=== PATIENT | female | born 1975 | race Caucasian/White ===

== ENCOUNTER → 2016-11-14 | Outpatient (REF) | payer OTHER ==
[~2016-11-14] MED LIST: /MOXI40TA; /PIME1CR30 TOP; /PRIM50TA PO; /QUET10TA PO; /RANI15TA PO; ABIL5TAB OR; AFRI0.65; ALLE25CA OR; AMBI10TA; AMBI5TAB OR; AMBI5TAB PO; ATARAX OR; CALC05CR TOP; CELE100C OR; CLOB0.0513 TOP; CLOBEX TOP; DEPA500T2 OR; DEPA500T2 PO; EFFEXOR XR PO; FLUO10TA2 OR; GENECHW PO; KLON0.5T OR; LAMI25TA OR; LAMI25TA PO; LEVO25TA5 PO; LITH300C PO; LITH300T2 PO; LITHIUM PO; MAXA10TA14 PO; MAXA5TAB OR; MAXA5TAB10 PO; MULTCAP PO; NAPR500T OR; NASONEX; PRIL20CA PO; PRIL20TA2 PO; PROZ10CA7 PO; PROZ20CA OR; PROZ20CA11 PO; PROZ40CA OR; QUET20XRTB OR; QUET30XR OR; QUET30XR PO; REME30TA; SERO1TAB PO; SERO200T PO; SERO200T2 PO; SEROQUEL PO; SEROQUEL XR PO; TACLOIN4 TOP; TACLONEX TOP; TOPI25TA2; TRAZ150T PO; VERA40TA2 PO; ZOLO100T; ZOLO25TA PO; ZOLO50TA PO; ZYPR10TA; ZYPR2.5T; ZYPR5TAB OR; [UNRECOGNIZED DRUG - CODE] TOP; [UNRECOGNIZED DRUG - OTHER] TOP; ambien; mometasone TOP
[2016-11-14 14:18] LABS: FREE T4 1.02 NG/DL (0.76-1.46)
== END ==
LOC: M SFHCADAM 09:14
PROVIDERS: ATTEND Family Medicine
DX: E03.8 Other specified hypothyroidism (principal)

== ENCOUNTER → 2016-11-16 | Outpatient (REF) | payer OTHER | LOC: M SFHCWAGY 11:24 | PROVIDERS: ATTEND Nurse Practitioner Women's Health | DX: Z12.4 Encounter for screening for malignant neoplasm of cervix (principal) ==

== ENCOUNTER → 2016-11-20 | Outpatient (CLI) | payer OTHER ==
--- NOTE | 2016-11-24 23:49 | ECWPNPC ---
PATIENT NAME: KOLE UNDERWOOD : 1975 GENDER: FEMALE VISIT DATE: 11/20/2016 DISCHARGE DATE: 11/20/16 1309 VISIT LOCKED DATE TIME: PHYSICIAN: DOMENICO REBOLLAR RESOURCE: DOMENICO REBOLLAR REASON FOR APPOINTMENT 1. NECK/BACK PAIN HISTORY OF PRESENT ILLNESS NEW PATIENT CONSULT: WHEN DID YOUR PAIN FIRST START? . BRIEFLY DESCRIBE HOW YOUR PAIN STARTED? . HOW DOES YOUR PAIN CHANGE WITH TIME? . DOES YOUR PAIN AWAKEN YOU FROM SLEEP? . HOW MANY HOURS OF SLEEP DO YOU NORMALLY GET? . ANY DIAGNOSTIC TESTING? . FACILITY WHERE TESTS WERE DONE? ____. PAIN TREATMENT TREATMENT YES CANCER HAVE YOU EVER HAD ANY TYPE OF CANCER?NO NO. PAIN SCREENING: PATIENT HAS A COMPLAINT OF ACUTE OR CHRONIC PAIN YES FALL RISK SCREENING: SCREENING :NO FALLS IN THE PAST YEAR SKINNER INVENTORY: QUESTIONNAIRE ASSESSEDYES SCORE VALUE CALCULATED YES SCORE: 20 DENIES SUICIDAL OR HOMICIDAL IDEATION TODAY'S VISIT: NOTES: PT IS REFERRED BY Chito CONSTANTINO PA-C FOR FURTHER CARE OF NECK AND LOW BACK PAIN.HAS PREVIOUSLY SEEN DR Meir RAYMUNDO AT [facility] FOR THIS PROBLEM IN SEP-2015. NOTES PAIN IN NECK AND RIGHT SHOULDER AND IN LOW BACK. DURATION A FEW YEARS WITH WORST IN LAST YEAR. NOTES SOME NUMBNESS AND TINGLING TO HANDS RIGHT>LEFT. IS HAVING PAIN RADIATING TO RIGHT GROIN WHEN WALKING. . IS HAVING PAIN DOWN LEGS VERY OCCASIONALLY TO RIGHT FOOT. PAIN INTERRUPTS SLEEPS. WORSE WITH CERTAIN MOVEMENTS. HAS BEEN TO PT (2015 -SUMMER) STRETCHING CAN HELP. HAD SEVERAL INJECTIONS IN NECK AND BACK. THIS WAS HELPFUL. RATES PAIN TODAY 5/10. DESCRIBES PAIN NEARLY CONSTANT, ACHING AND BURNING, TENDER, SORE AND SHOOTING. PAIN TODAY IS CENTERED AT MUNA BACK, AND AT BASE OF NECK WITH RADIATION TO BOTH UPPER ARMS.. CURRENT MEDICATIONS TAKING NEURONTIN 100 600 MG TABLET DIRECTED ORALLY THREE TIMES A DAY TAKING TYLENOL 500 MG TABLET 2 TABLETS ORALLY EVERY 4 HOURS NEEDED TAKING DEPAKOTE ER 500 MG TABLET EXTENDED RELEASE 24 HOUR 1 TABLET ORALLY 500MG IN AM, 1000MG AT BEDTIME TAKING PROZAC 40 MG CAPSULE 1 CAPSULE IN THE MORNING ORALLY ONCE A DAY TAKING DOVONEX 0.005 % CREAM 1 APPLICATION TO AFFECTED AREA ON BODY EXTERNALLY TWICE DAILY TAKING LAMICTAL 100 MG TABLET 1 TABLET ORALLY TWICE A DAY TAKING CLOBETASOL PROPIONATE 0.05 % OINTMENT 1 APPLICATION TO AFFECTED AREAS ON BODY EXTERNALLY ONCE A DAY FOR 2 WKS THEN SAT AND SUN TAKING DERMA-SMOOTHE/FS SCALP 0.01 % OIL 1 APPLICATION TO AFFECTED AREA AT BEDTIME EXTERNALLY ONCE A DAY TAKING CALCIPOTRIENE 0.005 % SOLUTION 1 APPLICATION TO SCALP EXTERNALLY TO SCALP BID TAKING TIZANIDINE HCL 2 MG TABLET 1 TAB(S) ORALLY NEEDED TAKING LAYOLIS FE 0.8-25 MG-MCG TABLET CHEWABLE ORAL DAILY TAKING KERALYT SCALP 6 % KIT DIRECTED EXTERNALLY TO SCALP THREE TIMES WEEKLY TO SCALP, LEAVE ON FOR AN HOUR THEN WASH OUT TAKING CLOBETASOL PROPIONATE 0.05 % SOLUTION 1 DROP TO AFFECTED AREA EXTERNALLY TWICE A DAY TO SCALP NEEDED TAKING ADDERALL XR 10 MG CAPSULE EXTENDED RELEASE 24 HOUR 1 CAPSULE IN THE MORNING AND 5 MG IN THE AFTERNOON ORALLY ONCE A DAY TAKING PROPRANOLOL HCL 10 MG TABLET TAKE ONE TABLET BY MOUTH AT BEDTIME ORAL TAKING AMBIEN 5 MG TABLET 1 TABLET AT BEDTIME ORALLY ONCE A DAY TAKING MAXALT 5 MG TABLET 1 TABLET NEEDED ONE TIME ORALLY ONCE A DAY NEEDED TAKING SPRINTEC 28 0.25-35 MG-MCG TABLET 1 TABLET ORALLY ONCE A DAY NOT-TAKING LEVOTHYROXINE SODIUM 25 MCG TABLET 1 TABLET ON AN EMPTY STOMACH IN THE MORNING ORALLY ONCE A DAY, NOTES: RAN OUT, NEEDS REFILL NOT-TAKING SEROQUEL XR 100 MG TABLET EXTENDED RELEASE 24 HOUR 1 TABLET ORALLY ONCE A DAY NOT-TAKING PRILOSEC 20 MG CAPSULE DELAYED RELEASE 1 CAPSULE ORALLY ONCE A DAY DISCONTINUED GENERESS FE 0.8-25 MG-MCG TABLET CHEWABLE ORALLY MEDICATION LIST REVIEWED AND RECONCILED WITH THE PATIENT PAST MEDICAL HISTORY ANXIETY AND BIPOLAR AFFECTIVE DISORDERR- HOSPITALISED FOR SUCIDAL GESTURE IN 03/12, LEXAPRO,ZYPREXA,LAMICTAL,PROZAC GABAPENTIN- CARTHAGE PSYCH SINUSITIS MIGRAINE PSORIASIS-USED CLOBETASAL AND CALCIPOTRIENE ADD PMDD FIBROMYALGIA ALLERGIES MEDROL (CRYSTAL): MANIC THOUGHTS: SIDE EFFECTS TRAZODONE 50: SEES THINGS: SIDE EFFECTS TOPAMAX 50: MANIC THOUGHTS: SIDE EFFECTS NSAIDS: GI/EFFECTS?POST GASTRIC BYPASS: CONTRAINDICATION PRIMIDONE: UNKNOWN: SIDE EFFECTS SURGICAL HISTORY WISDOM TEETH REMOVED 2002 LEFT FOOT BUNION SURGERY 2004 C SECTION 2005 C SECTION 2008 SEPTOPLASTY 2009 SINUS SURGERY 2009 GASTRIC BYPASS 2011 FAMILY HISTORY FATHER: MOTHER: ALIVE, DIAGNOSED WITH PSYCHIATRIC CONDITIONS 1 SON(S) , 1 DAUGHTER(S) - HEALTHY. FATHER COMITTED SUICIDE. SOCIAL HISTORY GENERAL: TOBACCO USE ARE YOU A:NONSMOKER ALCOHOL SCREENING POINTS1 INTERPRETATIONNEGATIVE RECREATIONAL DRUG USE DRUG USE?NO CAFFEINE CAFFEINE USE?YES HOW OFTEN AND HOW MUCH? 1 CAN SODA/DAILY OCCUPATION: VOLUNTEERS/HOUSEWIFE. DIET: REGULAR S/P GASTRIC BYPASS. EXERCISE: WALKS. MARITAL STATUS: . OTHERS AT HOME: SPOUSE, CHILDREN. PETS: 27 RABBITS/DOG/CAT. MORMON: NONE. LEARNING BARRIERS / SPECIAL NEEDS VISION IMPAIRED?YES :CORRECTIVE LENSES LEARNING PREFERENCES?YES :HANDOUTS, DEMONSTRATION/VERBAL INSTRUCTION MISCELLANEOUS: PLAN OF CARE REVIEWED WITH PT.. MEDICATION ABUSE NO PSYCHOLOGICAL HX TREATMENTYES HOW OFTEN AND HOW MUCH? MD MONTHLY, THERAPIST EVERY 2-3 WKS PAIN CLINIC PFS, CLERGY, PUBLIC HEALTH REFERRALS CLERGY REFERRAL NEEDED?NO WAS THE PROVIDER NOTIFIED OF ANY PERTINENT INFO?NO PFS REFERRAL NEEDED?NO PUBLIC HEALTH REFERRAL NEEDED?NO PATIENT: ____. ADVANCED DIRECTIVES HEALTH CARE PROXY?NO POWER OF GASTROENTEROLOGY PHYSICIAN?NO DOMESTIC VIOLENCE: NONE. HOSPITALIZATION/MAJOR DIAGNOSTIC PROCEDURE PSYCH ADMITS FOR BIPOLAR DISORDER-15 ADMITS SEE ABOVE SURGERIES REVIEW OF SYSTEMS CONSTITUTIONAL: LEVEL OF ENERGY HIGH LEVEL OF FATIGE, BRAIN FOG . ANY CHANGE IN YOUR MEDICAL CONDITION? NO . CHILLS NO . FEVER NO . INFECTION: DO YOU HAVE NEW INFECTIONS? NO . DO YOU HAVE HISTORY OF MRSA? NO . MUSCULOSKELETAL: ANY NEW PATTERNS OF PAIN OR NUMBNESS? YES PT STATES HX OF BACK/NECK/SHOULDER DISCOMFORT FOR &QUOT; YEARS, BUT LOT WORSE IN THE LAST THREE MOS&QUOT;. PT DENIES TRAUMA. PT NOTES &QUOT;WEAR AND TEAR FROM LIFTING&QUOT; . SYTEMIC LUPUS NO . GASTROENTEROLOGY: GENERAL S/P GASTRIC BYPASS SURGERY. HAS BEEN NOT "FOLLOWING THE RULES" . ANY NEW CHANGE IN BOWEL CONTROL? NO . BARRETTS ESOPHAGUS NO . CIRRHOSIS NO . HEPATITIS NO . LIVER FAILURE NO . ACID REFLUX NO . UNEXPLAINED WEIGHT LOSS NO . GENITOURINARY: ANY NEW CHANGE IN BLADDER CONTROL? NO . IS THERE A CHANCE YOU COULD BE ? NO . HEMATOLOGY/LYMPH: DO YOU TAKE ANY BLOOD THINNERS? (FOR EXAMPLE- COUMADIN, PLAVIX, AGGRENOX, PLATEL, PRADAXA, OR XARELTO) NO . WHEN WAS YOUR LAST DOSE? DATE: TIME: . LOW PLATELET COUNT NO . SICKLE CELL DISEASE NO . VON WILLIEBRANDS NO . FACTOR V LEIDEN NO . THALLASEMIA NO . ANEMIA NO . EASY BRUISING NO . NEUROLOGY: HAVE YOU FALLEN IN THE PAST 6 MONTHS? FEBRILE SEIZURES CHILD . MYAASTHENIA GRAVIS NO . CARDIOLOGY: DO YOU HAVE A PACEMAKER OR DEFIBRILLATOR? NO . ANGINA NO . HEART ATTACK NO . HEART SURGERY NO . CONGESTIVE HEART FAILURE/FLUID OVERLOAD NO . CHEST PAIN NO . HIGH BLOOD PRESSURE NO . IRREGULAR HEART BEAT FEELS HEART RACING . RESPIRATORY: HAVE YOU BEEN SICK IN THE PAST WEEK? YES &QUOT;SINUS INFECTION COMING ON&QUOT; . FEVER NO . FLU LIKE SYMPTOMS? NO . CPAP NO . BYPAP NO . ASTHMA NO . EMPHYSEMA NO . CHRONIC LUNG DISEASES NO . SHORTNESS OF BREATH ON EXERTION NO . DO YOU USE ANY TYPE OF TOBACCO (SMOKE, SMOKELESS, CHEW)? NO . COUGH YES R/T SINUS-POST ANSAL DRIP COUGH. NONPRODUCTIVE . SNORING NO . INTEGUMENTARY: DO YOU HAVE ANY RASHES OR OPEN SORES? YES PSORIASIS . ALLERGIC/IMMUNO: ARE YOU ALLERGIC TO SHELLFISH OR IV DYE? NO . ANY NEW ALLERGIES? NO . PSYCHIATRIC: DO YOU HAVE THOUGHTS OF HURTING YOURSELF OR SOMEONE ELSE? NO . ARE YOU ABUSED, NEGLECTED, OR IN AN UNSAFE ENVIRONMENT? NO . ENDOCRINOLOGY: ARE YOU DIABETIC? NO . THYROID DISORDER YES . OTHER: DO YOU NEED ANY PRESCRIPTIONS? NO . IF YES, PLEASE LIST: ____ . ANY NEW PROBLEMS WITH YOUR MEDICATIONS? NO . WHEN DID YOU LAST EAT? ____ . WHEN DID YOU LAST DRINK? ____ . WHAT DID YOU LAST DRINK? ____ . NAME OF PERSON DRIVING YOU HOME? ____ . DO YOU HAVE ANY OTHER QUESTIONS OR CONCERNS NO . PSYCHOLOGY: ARE YOU RECEIVING COUNSELING? RECEIEVES CONTINUED BEHAVIORAL HEALTH CARE AND COUNSELING. . REVIEWED BY: PROVIDER: DOMENICO MCGARRY . VITAL SIGNS WT 185.6 LBS, HT 63 IN, BMI 32.87 INDEX, BP 129/82 MM HG, HR 84 /MIN, RR 18 /MIN, TEMP 97.4 F, OXYGEN SAT % 99, NA INITIALS HS, REVIEWED BY: MLF. EXAMINATION GENERAL EXAMINATION: PSYCHALERT , ORIENTED X 3 , APPROPRIATE MOOD AND AFFECT , GOOD EYE CONTACT. HEENT:NORMOCEPHALIC, NO LYMPHADENOPATHY, NO THYROMEGLY. LUNGS:CLEAR TO AUSCULTATION BILATERALLY, NO WHEEZES RALES OR RHONCHI. HEART:HEART RATE REGULAR, NORMAL S1S2, NO MURMURS, CLICK OR RUBS, NO CAROTID BRUITS. MUSCULOSKELETAL:TRIGGER POINTS AND TIGHT FIBROUS BANDS ACROSS THE CERVICAL PARASPINOUS MUSCLES AND ACROSS THE TRAPEZIUS BILATERALLY. DECREASED ROM WITH NECK FLEXION, EXTENSION AND ROTATION. . POINT TENDERNESS OVER LUMBOSACRAL AXIS AND SACRUM. , MUSCLE STRENGTH TESTING 5/5 BILATERAL UPPER AND LOWER EXTREMITIES. NO PAIN WITH SLR, PELVIC COMPRESSION OR PATRICKS TESTING. NO PAIN WITH PALPATION OVER BILATERAL ACROMIOCLAVICULAR JOINTS. . NEUROLOGIC EXAM:CN'S II-XII GROSSLY INTACT. DTRS 2+ LEFT UPPER AND LOWER EXTREMITIES. 3+ RIGHT UPPER AND LOWER EXTREMITIES. PLANTAR RESPONSE IS FLEXOR. NO CLONUS. NO SENSORY DEFIECT ELICITED TO LIGHT TOUCH IN UPPER OR LOWER EXTREMITES.. 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 ,TRIGGER POINT INJECTION MATERIAL WAS PRINTED,TRIGGER POINT INJECTION: YOUR EXPERIENCE MATERIAL WAS PRINTED. PROCEDURE CODES FA211 ESTABILISHED PATIENT [facility] CHARGE DISPOSITION & COMMUNICATION FOLLOW UP AFTER INJECTION (REASON: CHECK AUTH FOR TPI GET VERONICA - NEED TO KNOW WHAT INJECTION TREATMENTS DR RAYMUNDO DID) ELECTRONICALLY SIGNED BY SHADI LOPEZ ON 11/24/2016 AT 06:02 PM EDT DISCLAIMER : THIS IS A VISIT SUMMARY EXTRACTED FROM THE [employer] CHART. IT IS NOT A COPY OF THE [employer] PROGRESS NOTE. MTDD
== END | disposition home or self-care (01) ==
LOC: M PAIN 11:20
PROVIDERS: ATTEND Nurse Practitioner Family
DX: G89.29 Other chronic pain (principal); M79.7 Fibromyalgia; M54.2 Cervicalgia; M51.26 Other intervertebral disc displacement, lumbar region; F41.9 Anxiety disorder, unspecified; F31.9 Bipolar disorder, unspecified; E07.9 Disorder of thyroid, unspecified; G43.909 Migraine, unspecified, not intractable, without status migrainosus; F90.9 Attention-deficit hyperactivity disorder, unspecified type; L40.9 Psoriasis, unspecified; Z98.84 Bariatric surgery status; Z79.899 Other long term (current) drug therapy; Z88.8 Allergy status to other drugs, medicaments and biological substances

== ENCOUNTER → 2016-11-28 | Outpatient (CLI) | payer OTHER ==
--- NOTE | 2016-11-28 11:14 | REPMRS ---
Patient History The patient states she had a clinical breast exam in 11/2016. No known family history of cancer. Taking hormonal contraceptives for 15 years. Digital Woman Screen Mammo: November 28, 2016 - Exam #: [id number] Bilateral CC and MLO view(s) were taken. Technologist: Blaire Stapleton, Technologist FINDINGS: The breast tissue is heterogeneously dense. This may lower the sensitivity of mammography. This is a baseline mammogram. There is a moderate amount of residual fibroglandular tissue which is fairly symmetric. There is no dominant mass, architectural distortion, or clustered microcalcification typical of malignancy. Scattered lymph nodes are seen in the axillae. ASSESSMENT: BI-RADS/ACR category 2 mammogram. Benign finding(s). Recommendation Routine screening mammogram in 1 year (for women over age 40). This mammogram was interpreted with the aid of an FDA-approved computer-aided dectection system. A. Negative x-ray reports should not delay biopsy if a dominant or clinically suspicious mass is present. B. Four to eight percent of cancers are not identified by mammography. C. Adenosis and dense breast may obscure an underlying neoplasm. Electronically Signed By: Hernan Shah MD 11/28/16 3626
== END ==
LOC: M WHC 09:28
PROVIDERS: ATTEND Nurse Practitioner Women's Health
DX: Z12.31 Encounter for screening mammogram for malignant neoplasm of breast (principal)

== ENCOUNTER → 2016-12-11 | Outpatient (REF) | payer OTHER | LOC: M LABDRWAD 13:11 | PROVIDERS: ATTEND Psychiatry & Neurology Psychiatry | DX: Z79.899 Other long term (current) drug therapy (principal) ==

== ENCOUNTER → 2017-01-16 | Outpatient (CLI) | payer OTHER ==
[~2017-01-16] MED LIST changes: +BUPIVACAINE HCL 0.25% 10 ML VIAL As Ordered ONE; +BUPIVACAINE HCL 0.25% 30 ML VIAL As Ordered ONE; +TRIAMCINOLONE ACETONIDE SUSP 40 MG/ML VIAL (J3301) As Ordered ONE
--- NOTE | 2017-01-26 00:33 | ECWPNPC ---
PATIENT NAME: KOLE UNDERWOOD : 1975 GENDER: FEMALE VISIT DATE: 01/16/2017 DISCHARGE DATE: 01/16/17 1417 VISIT LOCKED DATE TIME: PHYSICIAN: ISABELLE SINGER RESOURCE: ISABELLE SINGER REASON FOR APPOINTMENT 1. TPI HISTORY OF PRESENT ILLNESS HISTORY OF PRESENT ILLNESS: PAIN THE PATIENT DESCRIBES THE PAIN... FALL RISK SCREENING: SCREENING :NO FALLS IN THE PAST YEAR CURRENT MEDICATIONS TAKING NEURONTIN 100 600 MG TABLET DIRECTED ORALLY THREE TIMES A DAY, NOTES: 729 TAKING TYLENOL 500 MG TABLET 2 TABLETS ORALLY EVERY 4 HOURS NEEDED, NOTES: FEW DAYS TAKING DEPAKOTE ER 500 MG TABLET EXTENDED RELEASE 24 HOUR 1 TABLET ORALLY 500MG IN AM, 1000MG AT BEDTIME, NOTES: 729 TAKING PROZAC 40 MG CAPSULE 1 CAPSULE IN THE MORNING ORALLY ONCE A DAY, NOTES: 729 TAKING DOVONEX 0.005 % CREAM 1 APPLICATION TO AFFECTED AREA ON BODY EXTERNALLY TWICE DAILY TAKING LAMICTAL 100 MG TABLET 1 TABLET ORALLY TWICE A DAY, NOTES: 729 TAKING CLOBETASOL PROPIONATE 0.05 % OINTMENT 1 APPLICATION TO AFFECTED AREAS ON BODY EXTERNALLY ONCE A DAY FOR 2 WKS THEN SAT AND SUN TAKING DERMA-SMOOTHE/FS SCALP 0.01 % OIL 1 APPLICATION TO AFFECTED AREA AT BEDTIME EXTERNALLY ONCE A DAY TAKING CALCIPOTRIENE 0.005 % SOLUTION 1 APPLICATION TO SCALP EXTERNALLY TO SCALP BID TAKING TIZANIDINE HCL 2 MG TABLET 1 TAB(S) ORALLY NEEDED, NOTES: 2 WEEKS AGO TAKING LAYOLIS FE 0.8-25 MG-MCG TABLET CHEWABLE ORAL DAILY, NOTES: 2099 LAST NIGHT TAKING KERALYT SCALP 6 % KIT DIRECTED EXTERNALLY TO SCALP THREE TIMES WEEKLY TO SCALP, LEAVE ON FOR AN HOUR THEN WASH OUT TAKING CLOBETASOL PROPIONATE 0.05 % SOLUTION 1 DROP TO AFFECTED AREA EXTERNALLY TWICE A DAY TO SCALP NEEDED TAKING ADDERALL XR 10 MG CAPSULE EXTENDED RELEASE 24 HOUR 1 CAPSULE IN THE MORNING AND 5 MG IN THE AFTERNOON ORALLY ONCE A DAY, NOTES: 729 TAKING PROPRANOLOL HCL 10 MG TABLET TAKE ONE TABLET BY MOUTH AT BEDTIME ORAL , NOTES: 2099 LAST NIGHT TAKING AMBIEN 5 MG TABLET 1 TABLET AT BEDTIME ORALLY ONCE A DAY, NOTES: LAST NIGHT TAKING MAXALT 5 MG TABLET 1 TABLET NEEDED ONE TIME ORALLY ONCE A DAY NEEDED, NOTES: WEEKEND TAKING SPRINTEC 28 0.25-35 MG-MCG TABLET 1 TABLET ORALLY ONCE A DAY, NOTES: TO START IN FUTURE TAKING VOLTAREN 1 % GEL DIRECTED TRANSDERMAL APPLY 4 GM TO NECK/LOW BACK Q 6 HRS PRN TAKING VOLTAREN 1 % GEL DIRECTED TRANSDERMAL APPLY 4 GM TO PAINFUL AREA Q 6 HRS PRN TAKING ZYRTEC ALLERGY 10 MG TABLET 1 TABLET ORALLY ONCE A DAY, NOTES: 2 DAYS NOT-TAKING AUGMENTIN 875-125 MG TABLET 1 TABLET ORALLY EVERY 12 HRS NOT-TAKING LEVOTHYROXINE SODIUM 25 MCG TABLET 1 TABLET ON AN EMPTY STOMACH IN THE MORNING ORALLY ONCE A DAY, NOTES: RAN OUT, NEEDS REFILL NOT-TAKING SEROQUEL XR 100 MG TABLET EXTENDED RELEASE 24 HOUR 1 TABLET ORALLY ONCE A DAY NOT-TAKING PRILOSEC 20 MG CAPSULE DELAYED RELEASE 1 CAPSULE ORALLY ONCE A DAY MEDICATION LIST REVIEWED AND RECONCILED WITH THE PATIENT PAST MEDICAL HISTORY ANXIETY AND BIPOLAR AFFECTIVE DISORDERR- HOSPITALISED FOR SUCIDAL GESTURE IN 03/12, LEXAPRO,ZYPREXA,LAMICTAL,PROZAC GABAPENTIN- CARTHAGE PSYCH SINUSITIS MIGRAINE PSORIASIS-USED CLOBETASAL AND CALCIPOTRIENE ADD PMDD FIBROMYALGIA WEARS BIPAP ALLERGIES MEDROL (CRYSTAL): MANIC THOUGHTS: SIDE EFFECTS TRAZODONE 50: SEES THINGS: SIDE EFFECTS TOPAMAX 50: MANIC THOUGHTS: SIDE EFFECTS NSAIDS: GI/EFFECTS?POST GASTRIC BYPASS: CONTRAINDICATION PRIMIDONE: UNKNOWN: SIDE EFFECTS SURGICAL HISTORY WISDOM TEETH REMOVED 2002 LEFT FOOT BUNION SURGERY 2004 C SECTION 2005 C SECTION 2008 SEPTOPLASTY 2009 SINUS SURGERY 2010 GASTRIC BYPASS 2012 HOSPITALIZATION/MAJOR DIAGNOSTIC PROCEDURE PSYCH ADMITS FOR BIPOLAR DISORDER-15 ADMITS SEE ABOVE SURGERIES REVIEW OF SYSTEMS CONSTITUTIONAL: ANY CHANGE IN YOUR MEDICAL CONDITION? NO . CHILLS NO . FEVER NO . INFECTION: DO YOU HAVE NEW INFECTIONS? NO . DO YOU HAVE HISTORY OF MRSA? NO . MUSCULOSKELETAL: ANY NEW PATTERNS OF PAIN OR NUMBNESS? NO . GASTROENTEROLOGY: ANY NEW CHANGE IN BOWEL CONTROL? YES, LOOSE STOOLS OVER LAST SEVERAL DAYS . GENITOURINARY: ANY NEW CHANGE IN BLADDER CONTROL? NO . IS THERE A CHANCE YOU COULD BE ? NO . HEMATOLOGY/LYMPH: DO YOU TAKE ANY BLOOD THINNERS? (FOR EXAMPLE- COUMADIN, PLAVIX, AGGRENOX, PLATEL, PRADAXA, OR XARELTO) NO . WHEN WAS YOUR LAST DOSE? DATE: TIME: . NEUROLOGY: HAVE YOU FALLEN IN THE PAST 6 MONTHS? NO . ANY NEW EXTREMITY NUMBNESS OR WEAKNESS? NUMBNESS AND TINGLING TO HANDS AND WRISTS . CARDIOLOGY: DO YOU HAVE A PACEMAKER OR DEFIBRILLATOR? NO . RESPIRATORY: HAVE YOU BEEN SICK IN THE PAST WEEK? NO . FEVER NO . FLU LIKE SYMPTOMS? NO . COUGH NO . INTEGUMENTARY: DO YOU HAVE ANY RASHES OR OPEN SORES? PSORIASIS ON ELBOWS, SCALP AND LEGS . ALLERGIC/IMMUNO: ARE YOU ALLERGIC TO SHELLFISH OR IV DYE? NO . ANY NEW ALLERGIES? NO . PSYCHIATRIC: DO YOU HAVE THOUGHTS OF HURTING YOURSELF OR SOMEONE ELSE? NO . ARE YOU ABUSED, NEGLECTED, OR IN AN UNSAFE ENVIRONMENT? NO . ENDOCRINOLOGY: ARE YOU DIABETIC? NO . OTHER: DO YOU NEED ANY PRESCRIPTIONS? NO . IF YES, PLEASE LIST: ____ . ANY NEW PROBLEMS WITH YOUR MEDICATIONS? NO . WHEN DID YOU LAST EAT? _3 AM . WHEN DID YOU LAST DRINK? 1030 AM . WHAT DID YOU LAST DRINK? SWEET TEA . NAME OF PERSON DRIVING YOU HOME? JEM . DO YOU HAVE ANY OTHER QUESTIONS OR CONCERNS NO . REVIEWED BY: PROVIDER: . VITAL SIGNS WT 180.0 LBS, HT 63 IN, BMI 31.88 INDEX, BP 108/58 MM HG, HR 65 /MIN, RR 16 /MIN, TEMP 97.2 F, OXYGEN SAT % 98%, NA INITIALS TL 1324, REVIEWED BY: NL. ASSESSMENTS MYALGIA - M79.1 (PRIMARY) PROCEDURES PN TRIGGER POINT INJECTION WITH STEROIDS PRE PROCEDURE DIAGNOSIS 1. MYALGIA 2. PAIN AT BILATERAL NECK AREA AND BILATERAL SHOULDER AREA POST PROCEDURE DIAGNOSIS 1. MYALGIA 2. PAIN AT BILATERAL NECK AREA AND BILATERAL SHOULDER AREA PROCEDURE TRIGGER POINT INJECTION AT BILATERAL NECK AREA AND BILATERAL SHOULDER AREA SURGEON DR. ISABELLE SINGER STATISTICAL GENETICIST NONE ANESTHESIA LOCAL PRE PROCEDURE NOTE THE PATIENT HAS A HISTORY OF CHRONIC PAIN AT THE RIGHT AND LEFT NECK AREA AND RIGHT AND LEFT SHOULDER AREA. I EVALUATE THE PATIENT AND REVIEWED THE CHART. THERE IS EVIDENCE OF BANDS OF TISSUE WITH RESTRICTION OF MOVEMENT AND PRESENCE OF TRIGGER POINT AT THE AFFECTED AREA. I WENT OVER THE RISKS, ALTERNATIVES, AND BENEFITS ASSOCIATED WITH THIS PROCEDURE. THE PATIENT WOULD LIKE TO PROCEED AND GIVE CONSENT TO PERFORMED THE PROCEDURE. THE PATIENT DENIES UNEXPLAINABLE WEIGHT LOSS, FEVER, CHILLS, OR NEW CHANGES IN URINARY OR BOWEL CONTROL DESCRIPTION OF PROCEDURE THE PATIENT WAS BROUGHT TO THE PROCEDURE ROOM AND PLACED IN THE SITTING POSITION. THE AREA WAS CLEANED WITH ALCOHOL. THE PROCEDURE WAS DONE USING ASEPTIC STERILE TECHNIQUE. I CHECKED LATERALITY AND THE LEVEL WHERE THE PROCEDURE WAS GOING TO BE PERFORMED WITH THE PATIENT AND THE SUPPORTING STAFF AT THE MOMENT OF THE TIME OUT IN THE PROCEDURE ROOM. USING A 25-GAUGE NEEDLE, TRIGGER POINTS WERE INJECTED AT THE RIGHT AND LEFT NECK AREA AND RIGHT AND LEFT SHOULDER AREA WITH A TOTAL OF 40 ML OF BUPIVACAINE 0.25% AND KENALOG 40 MG. THERE WAS NO EVIDENCE OF BLOOD, PARESTHESIA OR CEREBROSPINAL FLUID DURING THE PROCEDURE. THE PATIENT WAS SENT TO THE RECOVERY ROOM. THE PATIENT WAS MOVING THE EXTREMITIES AND DOING WELL. THERE WAS NO COMPLICATION DURING THE PROCEDURE POST PROCEDURE NOTE THE PATIENT WILL BE SEEN IN A FOLLOW UP IN THE NEXT FEW WEEKS. INSTRUCTIONS WERE GIVEN, QUESTIONS WERE ANSWERED, AND THE PATIENT EXPRESSED UNDERSTANDING AND AGREES WITH THE PLAN. I, MARQUISE PEREZ, DOCUMENTED THE ABOVE INFORMATION ACTING A SCRIBE FOR DR. SINGER. I HAVE REVIEWED THE ABOVE DOCUMENT, WRITTEN BY MARQUISE MCNAIRIBKwabena AND I VERIFY THAT IT IS ACCURATE PROCEDURE CODES 65888 INJECT TRIGGER POINTS 3/> DISPOSITION & COMMUNICATION FOLLOW UP 3 WEEKS ELECTRONICALLY SIGNED BY ISABELLE SINGER MD ON 01/25/2017 AT 08:00 PM EDT DISCLAIMER : THIS IS A VISIT SUMMARY EXTRACTED FROM THE [employer] CHART. IT IS NOT A COPY OF THE [employer] PROGRESS NOTE. GEORGES
== END | disposition home or self-care (01) ==
LOC: M PAIN 13:20
PROVIDERS: ATTEND Anesthesiology
DX: G89.29 Other chronic pain (principal); M79.1 Myalgia; F41.9 Anxiety disorder, unspecified; F31.9 Bipolar disorder, unspecified; L40.9 Psoriasis, unspecified; F90.9 Attention-deficit hyperactivity disorder, unspecified type; Z79.899 Other long term (current) drug therapy; Z88.8 Allergy status to other drugs, medicaments and biological substances
CPT/HCPCS: 20553; J3301

== ENCOUNTER → 2017-04-04 | Outpatient (REF) | payer OTHER ==
[~2017-04-04] MED LIST changes: -BUPIVACAINE HCL 0.25% 10 ML VIAL As Ordered ONE; -BUPIVACAINE HCL 0.25% 30 ML VIAL As Ordered ONE; -TRIAMCINOLONE ACETONIDE SUSP 40 MG/ML VIAL (J3301) As Ordered ONE
[2017-04-04 17:59] LABS: FOLATE 13.2 NG/ML (>5.4); VITAMIN B12 LEVEL 647 PG/ML (247-911)
[2017-04-04 18:10] LABS: ALBUMIN 3.1 GM/DL (3.2-5.2); ALBUMIN/GLOBULIN RATIO 0.89 (1.00-1.93); ALKALINE PHOSPHATASE 66 U/L (45-117); ALT/SGPT 16 U/L (12-78); ANION GAP 9 MEQ/L (8-16); AST/SGOT 11 U/L (15-37); BILIRUBIN,TOTAL 0.2 MG/DL (0.2-1.0); BLOOD UREA NITROGEN 12 MG/DL (7-18); CALCIUM LEVEL 8.8 MG/DL (8.5-10.1); CARBON DIOXIDE LEVEL 29 MEQ/L (21-32); CHLORIDE LEVEL 101 MEQ/L (98-107); CREATININE FOR GFR 0.98 MG/DL (0.55-1.02); FREE T4 1.03 NG/DL (0.76-1.46); GLOMERULAR FILTRATION RATE > 60.0 (>58); GLUCOSE, FASTING 79 MG/DL (70-105); POTASSIUM SERUM 4.5 MEQ/L (3.5-5.1); SODIUM LEVEL 139 MEQ/L (136-145); TOTAL PROTEIN 6.6 GM/DL (6.4-8.2)
[2017-04-04 18:44] LABS: BASO % 0.2 % (0.0-1.0); EOS # 0.1 K/mm3 (0.0-0.50); EOS % 1.3 % (0.0-3.0); LARGE UNSTAINED CELL # 0.1 K/mm3 (0.0-0.4); LARGE UNSTAINED CELL % 0.6 % (0.0-4.0); LYMPH # 2.5 K/mm3 (1.5-4.5); LYMPH % 29.3 % (24.0-44.0); MEAN CORPUSCULAR HEMOGLOBIN 26.5 pg (27.0-33.0); MEAN CORPUSCULAR VOLUME 82.9 fl (80.0-96.0); MONO # 0.3 K/mm3 (0.0-0.8); MONO % 3.9 % (0.0-5.0); NEUTROPHILS # 5.4 K/mm3 (1.8-7.7); NEUTROPHILS % 64.7 % (36.0-66.0); PLATELET COUNT, AUTOMATED 324 k/mm3 (150-450); RED CELL DISTRIBUTION WIDTH 15.2 % (11.5-14.5); WHITE BLOOD COUNT 8.3 K/mm3 (4.0-10.0)
== END ==
LOC: M SFHCADAM 15:19
PROVIDERS: ATTEND Family Medicine
DX: R53.83 Other fatigue (principal); Z98.890 Other specified postprocedural states

== ENCOUNTER → 2017-04-19 | Outpatient (REF) | payer OTHER ==
[2017-04-19 20:17] LABS: PERCENT SATURATION 7.2 % (13.2-45.0)
== END ==
LOC: M SFHCADAM 15:26
PROVIDERS: ATTEND Family Medicine
DX: D64.9 Anemia, unspecified (principal)

== ENCOUNTER → 2017-09-17 | Outpatient (REF) | payer OTHER ==
[2017-09-17 19:40] LABS: HEMATOCRIT 36.1 % (36.0-47.0); HEMOGLOBIN 11.1 g/dl (12.0-16.0); MEAN CORPUSCULAR HEMOGLOBIN 25.8 pg (27.0-33.0); MEAN CORPUSCULAR HGB CONC 30.7 g/dl (32.0-36.5); MEAN CORPUSCULAR VOLUME 83.8 fl (80.0-96.0); PLATELET COUNT, AUTOMATED 234 10^3/uL (150-450); RED BLOOD COUNT 4.31 10^6/uL (4.00-5.40); RED CELL DISTRIBUTION WIDTH 14.4 % (11.5-14.5); WHITE BLOOD COUNT 5.5 10^3/uL (4.0-10.0)
[2017-09-17 21:30] LABS: ALBUMIN 2.8 GM/DL (3.2-5.2); ALBUMIN/GLOBULIN RATIO 0.82 (1.00-1.93); ALKALINE PHOSPHATASE 58 U/L (45-117); ALT/SGPT 11 U/L (12-78); ANION GAP 6 MEQ/L (8-16); AST/SGOT 10 U/L (7-37); BILIRUBIN,DIRECT < 0.1 MG/DL (0.0-0.2); BILIRUBIN,TOTAL 0.2 MG/DL (0.2-1.0); BLOOD UREA NITROGEN 14 MG/DL (7-18); CALCIUM LEVEL 8.2 MG/DL (8.5-10.1); CARBON DIOXIDE LEVEL 29 MEQ/L (21-32); CHLORIDE LEVEL 106 MEQ/L (98-107); CREATININE FOR GFR 1.18 MG/DL (0.55-1.02); FREE THYROXINE INDEX 2.4 % (1.3-4.8); GLUCOSE, FASTING 135 MG/DL (70-105); PHOSPHORUS LEVEL 2.8 MG/DL (2.5-4.9); POTASSIUM SERUM 4.5 MEQ/L (3.5-5.1); SODIUM LEVEL 141 MEQ/L (136-145); T UPTAKE 28 % (30-39); THYROXINE (T4) 8.7 UG/DL (4.5-12.0); TOTAL PROTEIN 6.2 GM/DL (6.4-8.2)
== END ==
LOC: M LABDRWAD 18:56
DX: F31.5 Bipolar disorder, current episode depressed, severe, with psychotic features (principal)
CPT/HCPCS: 84443

== ENCOUNTER → 2017-10-19 | Outpatient (REF) | payer OTHER ==
[2017-10-19 20:13] LABS: BASO % 0.2 % (0.0-1.0); EOS % 0.2 % (0.0-3.0); HEMATOCRIT 34.4 % (36.0-47.0); HEMOGLOBIN 10.5 g/dl (12.0-16.0); IMMATURE GRANULOCYTE % 0.2 % (0-3.0); LYMPH # 2.7 10^3/uL (1.5-4.5); LYMPH % 42.8 % (24.0-44.0); MEAN CORPUSCULAR HEMOGLOBIN 25.7 pg (27.0-33.0); MEAN CORPUSCULAR HGB CONC 30.5 g/dl (32.0-36.5); MEAN CORPUSCULAR VOLUME 84.3 fl (80.0-96.0); MONO # 0.5 10^3/uL (0.0-0.8); MONO % 7.2 % (0.0-5.0); NEUTROPHILS # 3.2 10^3/uL (1.8-7.7); NEUTROPHILS % 49.4 % (36.0-66.0); PLATELET COUNT, AUTOMATED 225 10^3/uL (150-450); RED BLOOD COUNT 4.08 10^6/uL (4.00-5.40); RED CELL DISTRIBUTION WIDTH 14.6 % (11.5-14.5); WHITE BLOOD COUNT 6.4 10^3/uL (4.0-10.0)
[2017-10-19 20:50] LABS: ESTIMATED AVERAGE GLUCOSE 120 MG/DL (60-110); HEMOGLOBIN A1c 5.8 %
[2017-10-19 20:54] LABS: PROGESTERONE < 0.2 NG/ML; THYROGLOBULIN ANTIBODY < 15.0 U/ML (<60.0); THYROID PEROXIDASE ANTIBODY 28.4 U/ML (<60.0)
[2017-10-19 21:00] LABS: ALBUMIN/GLOBULIN RATIO 0.94 (1.00-1.93); ALKALINE PHOSPHATASE 51 U/L (45-117); ALT/SGPT 10 U/L (12-78); ANION GAP 9 MEQ/L (8-16); AST/SGOT 8 U/L (7-37); BILIRUBIN,TOTAL 0.2 MG/DL (0.2-1.0); BLOOD UREA NITROGEN 13 MG/DL (7-18); CALCIUM LEVEL 8.5 MG/DL (8.5-10.1); CARBON DIOXIDE LEVEL 28 MEQ/L (21-32); CHLORIDE LEVEL 103 MEQ/L (98-107); CREATININE FOR GFR 0.92 MG/DL (0.55-1.30); FREE T3 3.2 PG/ML (2.2-4.0); FREE T4 1.02 NG/DL (0.76-1.46); GLOMERULAR FILTRATION RATE > 60.0 (>58); GLUCOSE, FASTING 102 MG/DL (70-100); IMMUNOGLOBULIN A 63.5 MG/DL (70-400); IMMUNOGLOBULIN G 781 MG/DL (681-1648); POTASSIUM SERUM 4.1 MEQ/L (3.5-5.1); SODIUM LEVEL 140 MEQ/L (136-145); TOTAL PROTEIN 6.2 GM/DL (6.4-8.2); VALPROIC ACID (DEPAKOTE) 41.4 UG/ML (50.0-100.0)
[2017-10-19 21:09] LABS: LITHIUM LEVEL < 0.20 MEQ/L (0.60-1.20)
[2017-10-19 22:40] LABS: TOTAL 25(OH) VITAMIN D 8.9 NG/ML (30.0-100.0)
[2017-10-24 08:07] LABS: ESTROGENS TOTAL 67 pg/mL (.); TISSUE TRANSGLUTAMINASE IgA <2 U/mL (0-3); UNITSIGA FOR GLIADIN IGA 2 units (0-19); UNITSIGG FOR GLIADIN IGG 4 units (0-19)
== END ==
LOC: M LABDRWAD 19:46
DX: F31.9 Bipolar disorder, unspecified (principal); N94.3 Premenstrual tension syndrome

== ENCOUNTER → 2018-01-22 | Outpatient (CLI) | payer OTHER ==
[2018-01-22 14:47] LABS: BASO % 0.1 % (0.0-1.0); EOS % 0.3 % (0.0-3.0); HEMATOCRIT 33.5 % (36.0-47.0); HEMOGLOBIN 10.5 g/dl (12.0-15.5); IMMATURE GRANULOCYTE % 0.1 % (0-3.0); LYMPH # 2.3 10^3/uL (1.5-4.5); LYMPH % 34.3 % (24.0-44.0); MEAN CORPUSCULAR HEMOGLOBIN 24.8 pg (27.0-33.0); MEAN CORPUSCULAR HGB CONC 31.3 g/dl (32.0-36.5); MONO # 0.4 10^3/uL (0.0-0.8); MONO % 6.1 % (0.0-5.0); NEUTROPHILS # 3.9 10^3/uL (1.8-7.7); NEUTROPHILS % 59.1 % (36.0-66.0); PLATELET COUNT, AUTOMATED 277 10^3/uL (150-450); RED BLOOD COUNT 4.24 10^6/uL (4.00-5.40); RED CELL DISTRIBUTION WIDTH 13.2 % (11.5-14.5); WHITE BLOOD COUNT 6.7 10^3/uL (4.0-10.0)
[2018-01-22 14:52] LABS: HEMATOCRIT 33.7 % (36.0-47.0)
[2018-01-22 15:23] LABS: PROGESTERONE 12.7 NG/ML
[2018-01-22 15:27] LABS: IRON (FE) 23 UG/DL (50-170); PERCENT SATURATION 5.2 % (13.2-45.0); TOTAL IRON BINDING CAPACITY 440 UG/DL (250-450)
[2018-01-24 00:10] LABS: LAMOTRIGINE (LAMICTAL) 5.1 ug/mL (2.0-20.0)
[2018-01-25 11:43] LABS: PRETREATED FOLATE FOR RBCFOL 6.7 NG/ML; RBC FOLATE 417.5 NG/ML (280-791)
[2018-01-26 00:07] LABS: GLUTATHIONE QT 256 ug/mL (176-323)
== END ==
LOC: M LAB 13:48
DX: F31.9 Bipolar disorder, unspecified (principal); M79.7 Fibromyalgia; D50.8 Other iron deficiency anemias; E55.9 Vitamin D deficiency, unspecified; N94.3 Premenstrual tension syndrome
CPT/HCPCS: 83550

== ENCOUNTER → 2018-04-09 | Outpatient (CLI) | payer OTHER ==
[2018-04-09 16:19] LABS: BASO % 0.2 % (0.0-1.0); EOS % 0.1 % (0.0-3.0); HEMATOCRIT 35.2 % (36.0-47.0); HEMOGLOBIN 10.8 g/dl (12.0-15.5); IMMATURE GRANULOCYTE % 0.1 % (0-3.0); MEAN CORPUSCULAR HEMOGLOBIN 23.4 pg (27.0-33.0); MEAN CORPUSCULAR HGB CONC 30.7 g/dl (32.0-36.5); MEAN CORPUSCULAR VOLUME 76.2 fl (80.0-96.0); MONO # 0.5 10^3/uL (0.0-0.8); MONO % 6.4 % (0.0-5.0); NEUTROPHILS # 3.6 10^3/uL (1.8-7.7); NEUTROPHILS % 44.2 % (36.0-66.0); PLATELET COUNT, AUTOMATED 287 10^3/uL (150-450); RED BLOOD COUNT 4.62 10^6/uL (4.00-5.40); RED CELL DISTRIBUTION WIDTH 15.4 % (11.5-14.5); WHITE BLOOD COUNT 8.1 10^3/uL (4.0-10.0)
[2018-04-09 16:35] LABS: IRON (FE) 30 UG/DL (50-170); PERCENT SATURATION 6.8 % (13.2-45.0); TOTAL IRON BINDING CAPACITY 439 UG/DL (250-450)
[2018-04-09 16:40] LABS: TOTAL 25(OH) VITAMIN D 35.9 NG/ML (30.0-100.0)
[2018-04-09 16:40] LABS: PROGESTERONE 11.3 NG/ML
[2018-04-12 10:14] LABS: LAMOTRIGINE (LAMICTAL) 1.6 ug/mL (2.0-20.0)
[2018-04-12 10:14] LABS: ANTI DOUBLE STRAND-DNA AB <1 IU/mL (0-9); ANTINUCLEAR ANTIBODIES DIRECT Positive (Negative); RNP ANTIBODIES 6.7 AI (0.0-0.9); SJOGREN'S ANTI SS-A <0.2 AI (0.0-0.9); SJOGREN'S ANTI SS-B <0.2 AI (0.0-0.9); SMITH ANTIBODIES <0.2 AI (0.0-0.9)
== END ==
LOC: M WUC 13:52
DX: F31.9 Bipolar disorder, unspecified (principal); N94.3 Premenstrual tension syndrome
CPT/HCPCS: 83550

== ENCOUNTER → 2018-04-28 | Outpatient (REF) | payer OTHER ==
[2018-04-29 12:45] LABS: AMORPHOUS SEDIMENT SMALL (NEGATIVE); BACTERIA, URINE AUTO NEGATIVE (NEGATIVE); CALCIUM OXALATE CRYSTALS SMALL; MUCUS, URINE SMALL (NEGATIVE); RBC, URINE AUTO 2 /HPF (0-3); SQUAMOUS EPITHELIAL CELL UR AU 0 /HPF (0-6); WBC, URINE AUTO 1 /HPF (0-3)
[2018-04-29 14:05] LABS: CHLAMYDIA DNA AMPLIFICATION NEGATIVE (NEGATIVE); GC DNA AMPLIFICATION NEGATIVE (NEGATIVE)
== END ==
LOC: M LAB REF 12:19
DX: N76.0 Acute vaginitis (principal)

== ENCOUNTER 2018-06-10 15:19 | Emergency (ER) | payer OTHER ==
[2018-06-10 16:32] LABS: BASO % 0.3 % (0.0-1.0); EOS % 0.3 % (0.0-3.0); HEMATOCRIT 35.5 % (36.0-47.0); HEMOGLOBIN 10.7 g/dl (12.0-15.5); IMMATURE GRANULOCYTE % 0.2 % (0-3.0); LYMPH # 2.4 10^3/uL (1.5-4.5); LYMPH % 36.9 % (24.0-44.0); MEAN CORPUSCULAR HEMOGLOBIN 23.2 pg (27.0-33.0); MEAN CORPUSCULAR HGB CONC 30.1 g/dl (32.0-36.5); MONO # 0.4 10^3/uL (0.0-0.8); MONO % 6.8 % (0.0-5.0); NEUTROPHILS # 3.5 10^3/uL (1.8-7.7); NEUTROPHILS % 55.5 % (36.0-66.0); PLATELET COUNT, AUTOMATED 282 10^3/uL (150-450); RED BLOOD COUNT 4.61 10^6/uL (4.00-5.40); RED CELL DISTRIBUTION WIDTH 16.9 % (11.5-14.5); WHITE BLOOD COUNT 6.4 10^3/uL (4.0-10.0)
[2018-06-10 16:49] LABS: INR 1.07
[2018-06-10 17:14] LABS: ALBUMIN/GLOBULIN RATIO 1.48 (1.00-1.93); ALKALINE PHOSPHATASE 100 U/L (45-117); ALT/SGPT 25 U/L (12-78); ANION GAP 7 MEQ/L (8-16); AST/SGOT 14 U/L (7-37); BILIRUBIN,DIRECT < 0.1 MG/DL (0.0-0.2); BILIRUBIN,TOTAL 0.4 MG/DL (0.2-1.0); BLOOD UREA NITROGEN 9 MG/DL (7-18); CALCIUM LEVEL 8.8 MG/DL (8.5-10.1); CARBON DIOXIDE LEVEL 29 MEQ/L (21-32); CHLORIDE LEVEL 107 MEQ/L (98-107); CK-MB VALUE MASS < 1.0 NG/ML (<3.6); CPK CREATINE PHOSPHOKINASE 81 U/L (26-192); CREATININE FOR GFR 0.84 MG/DL (0.55-1.30); GLOMERULAR FILTRATION RATE > 60.0 (>58); GLUCOSE, FASTING 83 MG/DL (70-100); LIPASE 88 U/L (73-393); LITHIUM LEVEL < 0.20 MEQ/L (0.60-1.20); MB/CK RELATIVE INDEX 1.23 (< OR =4); POTASSIUM SERUM 4.3 MEQ/L (3.5-5.1); SODIUM LEVEL 143 MEQ/L (136-145); TOTAL PROTEIN 6.7 GM/DL (6.4-8.2); TROPONIN I < 0.02 NG/ML (< 0.10); VALPROIC ACID (DEPAKOTE) < 3.0 UG/ML (50.0-100.0)
[2018-06-13 00:06] LABS: LAMOTRIGINE (LAMICTAL) 6.5 ug/mL (2.0-20.0)
== END 2018-06-10 18:50 | disposition home or self-care (01) ==
LOC: M ED 15:19
DX: R42 Dizziness and giddiness (principal); R07.89 Other chest pain; R06.02 Shortness of breath; F41.9 Anxiety disorder, unspecified; Z98.84 Bariatric surgery status; Z88.8 Allergy status to other drugs, medicaments and biological substances; Z79.899 Other long term (current) drug therapy; Z79.890 Hormone replacement therapy
CPT/HCPCS: 71045

== ENCOUNTER 2018-06-13 14:36 | Emergency (ER) | payer OTHER ==
[2018-06-13] MEDS: NS 1,000 ML IV ×2 (17:20→19:08)
[2018-06-13] MEDS: diphenhydrAMINE INJ 50MG/ML VIAL (J1200) IV (17:21)
[2018-06-13] MEDS: METOCLOPRAMIDE INJ 10MG/2ML VIAL (J2765) IV (17:21)
[2018-06-13 17:29] LABS: BASO % 0.1 % (0.0-1.0); EOS % 0.2 % (0.0-3.0); HEMOGLOBIN 10.6 g/dl (12.0-15.5); IMMATURE GRANULOCYTE % 0.1 % (0-3.0); LYMPH # 2.9 10^3/uL (1.5-4.5); LYMPH % 34.8 % (24.0-44.0); MEAN CORPUSCULAR HEMOGLOBIN 23.3 pg (27.0-33.0); MEAN CORPUSCULAR HGB CONC 30.3 g/dl (32.0-36.5); MEAN CORPUSCULAR VOLUME 76.9 fl (80.0-96.0); MONO # 0.5 10^3/uL (0.0-0.8); MONO % 6.3 % (0.0-5.0); NEUTROPHILS # 4.8 10^3/uL (1.8-7.7); NEUTROPHILS % 58.5 % (36.0-66.0); PLATELET COUNT, AUTOMATED 257 10^3/uL (150-450); RED BLOOD COUNT 4.55 10^6/uL (4.00-5.40); RED CELL DISTRIBUTION WIDTH 16.6 % (11.5-14.5); WHITE BLOOD COUNT 8.3 10^3/uL (4.0-10.0)
[2018-06-13 17:54] LABS: ERYTHROCYTE SEDIMENTATION RATE 7 mm/hr (0-20)
[2018-06-13] MEDS: KETOROLAC 30 MG/ML VIAL (J1885) IV (17:59)
[2018-06-13] MEDS: ONDANSETRON 4MG/2ML VIAL (J2405) IV (17:59)
[2018-06-13 18:31] LABS: ANION GAP 10 MEQ/L (8-16); BLOOD UREA NITROGEN 14 MG/DL (7-18); C REACTIVE PROTEIN QUANTITATIV < 0.30 MG/DL (0.00-0.30); CALCIUM LEVEL 9.3 MG/DL (8.5-10.1); CARBON DIOXIDE LEVEL 24 MEQ/L (21-32); CHLORIDE LEVEL 108 MEQ/L (98-107); CK-MB VALUE MASS < 1.0 NG/ML (<3.6); CPK CREATINE PHOSPHOKINASE 83 U/L (26-192); CREATININE FOR GFR 0.79 MG/DL (0.55-1.30); GLOMERULAR FILTRATION RATE > 60.0 (>58); GLUCOSE, FASTING 85 MG/DL (70-100); POTASSIUM SERUM 4.8 MEQ/L (3.5-5.1); SODIUM LEVEL 142 MEQ/L (136-145); TROPONIN I < 0.02 NG/ML (< 0.10)
[2018-06-16 00:06] LABS: Lyme Disease IgG/IgM Antibodie <0.91 ISR (0.00-0.90); Lyme Disease IgM Ab Quantitati <0.80 index (0.00-0.79)
== END 2018-06-13 21:19 | disposition home or self-care (01) ==
LOC: M ED 14:36
DX: D64.9 Anemia, unspecified (principal); R42 Dizziness and giddiness; E86.0 Dehydration; R00.1 Bradycardia, unspecified; M79.7 Fibromyalgia; F32.9 Major depressive disorder, single episode, unspecified; K21.9 Gastro-esophageal reflux disease without esophagitis; R25.1 Tremor, unspecified; Z98.0 Intestinal bypass and anastomosis status; Z98.890 Other specified postprocedural states; Z88.8 Allergy status to other drugs, medicaments and biological substances; Z79.899 Other long term (current) drug therapy; Z79.890 Hormone replacement therapy
CPT/HCPCS: J1200

== ENCOUNTER → 2018-10-17 | Outpatient (CLI) | payer OTHER ==
[~2018-10-17] MED LIST changes: +GABA600T4 PO; +LAMO10TA PO; +LORA0.5T11 PO; +MECL-68 PO; +PROG200C PO; -QUET30XR PO; +SERO300T20 PO; +ZOFR4TAB14 PO
--- NOTE | 2018-10-17 13:40 | REPMRS ---
Patient History The patient states she has not had a clinical breast exam in over a year. No known family history of cancer. Took hormonal contraceptives for 16 years. 3D TOMOSYNTHESIS WAS PERFORMED. Digital Woman Screen Mammo: October 17, 2018 - Exam #: [id number] Bilateral CC and MLO view(s) were taken. Technologist: Blaire Stapleton, Technologist Prior study comparison: November 28, 2016, digital woman screen mammo performed at [facility]. FINDINGS: The breast tissue is extremely dense which could obscure a lesion on mammography. There is no evidence of cancer on this mammogram. No significant changes when compared with prior studies. Assessment: BI-RADS/ACR category 2 mammogram. Benign Findings. Recommendation Routine screening mammogram of both breasts in 1 year (for women over age 40). This mammogram was interpreted with the aid of an FDA-approved computer-aided dectection system. Electronically Signed By: Gregory Wong MD 10/17/18 [id number]
== END ==
LOC: M WHC 11:54
PROVIDERS: ATTEND Nurse Practitioner Women's Health
DX: Z12.31 Encounter for screening mammogram for malignant neoplasm of breast (principal); Z92.0 Personal history of contraception
CPT/HCPCS: 36415; 77063; 77067; 86780; 86803; 87389; 87491; 87591; 87624; G0123; G0463

== ENCOUNTER → 2018-10-17 | Outpatient (REF) | payer OTHER ==
[2018-10-17 18:42] LABS: CHLAMYDIA DNA AMPLIFICATION NEGATIVE (NEGATIVE); GC DNA AMPLIFICATION NEGATIVE (NEGATIVE)
[2018-10-18 12:47] LABS: HIV 1&2 SCREEN CENTAUR NEGATIVE (NEGATIVE)
[2018-10-19 14:43] LABS: HPV HYBRID CAPTURE II Negative (Negative)
== END ==
LOC: M SFHCWAGY 13:00
PROVIDERS: ATTEND Nurse Practitioner Women's Health
DX: Z12.4 Encounter for screening for malignant neoplasm of cervix (principal); Z11.3 Encounter for screening for infections with a predominantly sexual mode of transmission; Z11.51 Encounter for screening for human papillomavirus (HPV)
CPT/HCPCS: 87624; G0123

== ENCOUNTER 2018-11-21 13:13 | Day surgery (SDC) | payer OTHER ==
[~2018-11-21] VITALS: Ht 160 cm; Wt 60.8 kg
[~2018-11-21 13:13] MED LIST changes: +ABIL1TAB11 PO; +IRON27TA2 PO; +MAGN400C2 PO; +NS 1,000 ML IV ONE; +PROBCAP14 PO; +VITAD1000T PO
[2018-11-21] MEDS ORDERED: PROPOFOL 200 MG/20 ML VIAL As Ordered ONE (14:30)
[2018-11-21] MEDS ORDERED: LIDOCAINE 2% INJ 100 MG/5 ML SDV (FOR ANES.) As Ordered ONE (14:30)
--- NOTE | 2018-11-21 15:01 | ROOR ---
Patient Name: Aleisha Olguin Procedure Date: 11/21/2018 2:47 PM Date of : 1975 Age: 43 Room: [facility] Gender: Female Note Status: Finalized Procedure: Upper GI endoscopy Indications: Epigastric abdominal pain Providers: Efrem TOLLIVER MD Referring MD: Jackie SHERWOOD DO Requesting Provider: Medicines: Monitored Anesthesia Care Complications: No immediate complications. Procedure: Pre-Anesthesia Assessment: - The heart rate, respiratory rate, oxygen saturations, blood pressure, adequacy of pulmonary ventilation, and response to care were monitored throughout the procedure. The Endoscope was introduced through the mouth, and advanced to the jejunum. The upper GI endoscopy was accomplished without difficulty. The patient tolerated the procedure well. Findings: The examined esophagus was normal. 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 The gastrojejunal anastomosis was characterized by healthy appearing mucosa. The cardia and gastric fundus were normal on retroflexion. The exam of the stomach was otherwise normal. The examined jejunum was normal. Impression: - Normal esophagus. - Normal gastric remnant with Oren-en-Y gastrojejunostomy. - Gastrojejunal anastomosis is widely patent and characterized by healthy appearing mucosa. - Normal examined jejunum. - No specimens collected. Recommendation: - Use Prilosec (omeprazole) 20 mg PO daily. - (the script was sent to your pharmacy on file) - Observe patient's clinical course. Efrem Tolliver MD Efrem TOLLIVER MD 11/21/2018 3:00:36 PM This report has been signed electronically. Number of Addenda: 0 Note Initiated On: 11/21/2018 2:47 PM Estimated Blood Loss: Estimated blood loss: none.
[2018-11-21 15:20] VITALS: BP 83/51
== END 2018-11-21 15:39 | disposition home or self-care (01) ==
LOC: M OPP 13:13
PROVIDERS: ATTEND Internal Medicine Gastroenterology
DX: Z98.0 Intestinal bypass and anastomosis status (principal); Z98.84 Bariatric surgery status; R10.13 Epigastric pain; G47.30 Sleep apnea, unspecified; Z79.899 Other long term (current) drug therapy; Z88.8 Allergy status to other drugs, medicaments and biological substances

== ENCOUNTER → 2018-12-29 | Outpatient (REF) | payer OTHER ==
[~2018-12-29] MED LIST changes: -/MOXI40TA; -/PIME1CR30 TOP; -/PRIM50TA PO; -/QUET10TA PO; -/RANI15TA PO; +AVEL1TAB2; -CALC05CR TOP; +DOVO0.007 TOP; +ELID1CRE11 TOP; +LAMO100T80 PO; -LAMO10TA PO; -NS 1,000 ML IV ONE; +PRIM50TA6 PO; -QUET20XRTB OR; -QUET30XR OR; +RANI1TAB17 PO; +SERO200T43 OR; +SERO300T PO; +SERO300T20 OR; -SERO300T20 PO
== END ==
LOC: M LAB REF 10:04
PROVIDERS: ATTEND Physician Assistant Medical
DX: N39.0 Urinary tract infection, site not specified (principal)

== ENCOUNTER → 2019-03-04 | Outpatient (REF) | payer OTHER ==
[~2019-03-04] MED LIST changes: +PROG1CAP9 PO; -PROG200C PO
== END ==
LOC: M LAB REF 12:07
PROVIDERS: ATTEND Physician Assistant Medical
DX: N39.0 Urinary tract infection, site not specified (principal)

== ENCOUNTER → 2019-06-06 | Outpatient (CLI) | payer OTHER ==
[~2019-06-06] MED LIST changes: +CHOL100029 PO; -VITAD1000T PO
[2019-06-06 13:16] LABS: BASO % 0.1 % (0.0-1.0); EOS % 0.3 % (0.0-3.0); HEMATOCRIT 41.2 % (36.0-47.0); HEMOGLOBIN 13.2 g/dl (12.0-15.5); LYMPH # 2.2 10^3/uL (1.5-5.0); MEAN CORPUSCULAR HEMOGLOBIN 28.3 pg (27.0-33.0); MEAN CORPUSCULAR VOLUME 88.2 fl (80.0-96.0); MONO # 0.4 10^3/uL (0.0-0.8); MONO % 5.7 % (0.0-5.0); NEUTROPHILS % 64.8 % (36.0-66.0); PLATELET COUNT, AUTOMATED 227 10^3/uL (150-450); RED BLOOD COUNT 4.67 10^6/uL (4.00-5.40); WHITE BLOOD COUNT 7.7 10^3/uL (4.0-10.0)
[2019-06-06 13:30] LABS: ALBUMIN 3.8 GM/DL (3.2-5.2); ALT/SGPT 27 U/L (12-78); BILIRUBIN,TOTAL 0.3 MG/DL (0.2-1.0); BLOOD UREA NITROGEN 11 MG/DL (7-18); CALCIUM LEVEL 9.6 MG/DL (8.5-10.1); CARBON DIOXIDE LEVEL 27 MEQ/L (21-32); CHLORIDE LEVEL 107 MEQ/L (98-107); FREE T4 0.95 NG/DL (0.76-1.46); GLOMERULAR FILTRATION RATE > 60.0 (>58); GLUCOSE, FASTING 89 MG/DL (70-100); IRON (FE) 159 UG/DL (50-170); PERCENT SATURATION 39.7 % (13.2-45.0); POTASSIUM SERUM 4.2 MEQ/L (3.5-5.1); SODIUM LEVEL 141 MEQ/L (136-145); THYROGLOBULIN ANTIBODY < 15.0 U/ML (<60.0); THYROID PEROXIDASE ANTIBODY 45.5 U/ML (<60.0); TOTAL 25(OH) VITAMIN D 40.8 NG/ML (30.0-100.0); TOTAL IRON BINDING CAPACITY 401 UG/DL (250-450); TOTAL PROTEIN 6.6 GM/DL (6.4-8.2)
[2019-06-11 08:19] LABS: ANTI DOUBLE STRAND-DNA AB <1 IU/mL (0-9); ANTINUCLEAR ANTIBODIES DIRECT Positive (Negative); LAMOTRIGINE (LAMICTAL) 2.3 ug/mL (2.0-20.0); RNP ANTIBODIES 6.5 AI (0.0-0.9); SJOGREN'S ANTI SS-A <0.2 AI (0.0-0.9); SJOGREN'S ANTI SS-B <0.2 AI (0.0-0.9); SMITH ANTIBODIES <0.2 AI (0.0-0.9); T3 REVERSE 13.6 ng/dL (9.2-24.1)
== END ==
LOC: M LABDRWAD 10:22
PROVIDERS: ATTEND Nurse Practitioner Pediatrics
DX: F31.9 Bipolar disorder, unspecified (principal); N94.3 Premenstrual tension syndrome; M79.7 Fibromyalgia; D50.8 Other iron deficiency anemias; E55.9 Vitamin D deficiency, unspecified

== ENCOUNTER → 2019-09-06 | Outpatient (CLI) | payer OTHER ==
[2019-09-06 12:33] LABS: PERCENT SATURATION 20.8 % (13.2-45.0)
[2019-09-08 08:54] LABS: TOTAL 25(OH) VITAMIN D 33.3 NG/ML (30.0-100.0)
== END ==
LOC: M LAB 11:15
PROVIDERS: ATTEND Nurse Practitioner Pediatrics
DX: M79.7 Fibromyalgia (principal)

== ENCOUNTER → 2020-02-09 | Outpatient (REF) | payer OTHER ==
[~2020-02-09] MED LIST changes: -LORA0.5T11 PO; +LORA0.5T5 PO; -MECL-68 PO; +MECL1TAB31 PO
[2020-02-09 13:33] LABS: BASO % 0.4 % (0.0-1.0); EOS % 0.4 % (0.0-3.0); HEMATOCRIT 36.2 % (36.0-47.0); HEMOGLOBIN 11.5 g/dl (12.0-15.5); LYMPH # 1.8 10^3/uL (1.5-5.0); LYMPH % 36.8 % (24.0-44.0); MEAN CORPUSCULAR HGB CONC 31.8 g/dl (32.0-36.5); MEAN CORPUSCULAR VOLUME 88.3 fl (80.0-96.0); MONO # 0.4 10^3/uL (0.0-0.8); MONO % 7.4 % (0.0-5.0); NEUTROPHILS # 2.7 10^3/uL (1.5-8.5); NEUTROPHILS % 54.8 % (36.0-66.0); PLATELET COUNT, AUTOMATED 189 10^3/uL (150-450)
[2020-02-09 13:59] LABS: ALBUMIN 3.7 GM/DL (3.2-5.2); ALT/SGPT 24 U/L (12-78); BILIRUBIN,TOTAL 0.4 MG/DL (0.2-1.0); BLOOD UREA NITROGEN 14 MG/DL (7-18); C REACTIVE PROTEIN QUANTITATIV < 0.30 MG/DL (0.00-0.30); CALCIUM LEVEL 8.8 MG/DL (8.5-10.1); CARBON DIOXIDE LEVEL 30 MEQ/L (21-32); CHLORIDE LEVEL 109 MEQ/L (98-107); CHOLESTEROL LEVEL 150 MG/DL (<200); CREATININE FOR GFR 0.84 MG/DL (0.55-1.30); FREE T3 2.4 PG/ML (2.2-4.0); FREE T4 0.95 NG/DL (0.76-1.46); GLOMERULAR FILTRATION RATE > 60.0 (>58); GLUCOSE, FASTING 85 MG/DL (70-100); HDL CHOLESTEROL 60 MG/DL (>40); IRON (FE) 104 UG/DL (50-170); LDL CHOLESTEROL 73 MG/DL (<100); NON-HDL-C 90 MG/DL; PERCENT SATURATION 28.6 % (13.2-45.0); POTASSIUM SERUM 4.3 MEQ/L (3.5-5.1); PROGESTERONE 0.28 NG/ML; SODIUM LEVEL 142 MEQ/L (136-145); TOTAL 25(OH) VITAMIN D 39.8 NG/ML (30.0-100.0); TOTAL IRON BINDING CAPACITY 364 UG/DL (250-450); TRIGLYCERIDES LEVEL 85 MG/DL (<150)
[2020-02-09 14:00] LABS: THYROGLOBULIN ANTIBODY < 15.0 U/ML (<60.0); THYROID PEROXIDASE ANTIBODY < 28.0 U/ML (<60.0)
[2020-02-09 14:01] LABS: ERYTHROCYTE SEDIMENTATION RATE 4 mm/hr (0-20)
[2020-02-12 14:08] LABS: LAMOTRIGINE (LAMICTAL) 5.3 ug/mL (2.0-20.0)
== END ==
LOC: M LABDRWAD 12:25
PROVIDERS: ATTEND Nurse Practitioner Pediatrics
DX: F31.9 Bipolar disorder, unspecified (principal); N94.3 Premenstrual tension syndrome; M79.7 Fibromyalgia; D50.8 Other iron deficiency anemias; E55.9 Vitamin D deficiency, unspecified

== ENCOUNTER → 2021-03-02 | Outpatient (REF) | payer OTHER | LOC: M LAB REF 19:33 | PROVIDERS: ATTEND Physician Assistant | DX: R30.0 Dysuria (principal) ==

== ENCOUNTER → 2022-01-05 | Outpatient (CLI) | payer OTHER ==
[~2022-01-05] MED LIST changes: +AMOX875T2 PO; +ATIV1TAB10 PO; +COSE1INJ SC; +LAMO200T54 PO; +RIZA10TA2 PO
[2022-01-05 17:35] LABS: ALBUMIN 4.1 GM/DL (3.2-5.2); ALT/SGPT 47 U/L (12-78); BILIRUBIN,TOTAL 0.3 MG/DL (0.2-1.0); BLOOD UREA NITROGEN 11 MG/DL (7-18); CALCIUM LEVEL 9.8 MG/DL (8.5-10.1); CARBON DIOXIDE LEVEL 30 MEQ/L (21-32); CHLORIDE LEVEL 109 MEQ/L (98-107); CREATININE FOR GFR 0.74 MG/DL (0.55-1.30); FREE T3 2.5 PG/ML (2.2-4.0); FREE T4 0.95 NG/DL (0.76-1.46); GLOMERULAR FILTRATION RATE > 60.0 (>58); GLUCOSE, FASTING 97 MG/DL (70-100); IRON (FE) 140 UG/DL (50-170); PERCENT SATURATION 33.9 % (13.2-45.0); POTASSIUM SERUM 4.2 MEQ/L (3.5-5.1); PROGESTERONE 5.74 NG/ML; RHEUMATOID FACTOR QUANT < 10.0 IU/ML (<15.0); SODIUM LEVEL 142 MEQ/L (136-145); THYROID STIMULATING HORMONE 0.766 uIU/ML (0.358-3.740); TOTAL 25(OH) VITAMIN D 26.6 NG/ML (30.0-100.0); TOTAL IRON BINDING CAPACITY 413 UG/DL (250-450)
[2022-01-05 17:36] LABS: THYROGLOBULIN ANTIBODY < 15.0 U/ML (<60.0); THYROID PEROXIDASE ANTIBODY < 28.0 U/ML (<60.0)
[2022-01-05 18:02] LABS: BASO % 0.4 % (0.0-1.0); EOS % 0.1 % (0.0-3.0); HEMATOCRIT 41.7 % (36.0-47.0); LYMPH # 1.9 10^3/uL (1.5-5.0); LYMPH % 27.6 % (24.0-44.0); MEAN CORPUSCULAR HEMOGLOBIN 28.1 pg (27.0-33.0); MEAN CORPUSCULAR HGB CONC 31.2 g/dl (32.0-36.5); MEAN CORPUSCULAR VOLUME 90.3 fl (80.0-96.0); MONO # 0.4 10^3/uL (0.0-0.8); MONO % 5.3 % (2.0-8.0); NEUTROPHILS # 4.5 10^3/uL (1.5-8.5); NEUTROPHILS % 66.3 % (36.0-66.0); PLATELET COUNT, AUTOMATED 258 10^3/uL (150-450); RED BLOOD COUNT 4.62 10^6/uL (4.00-5.40); WHITE BLOOD COUNT 6.8 10^3/uL (4.0-10.0)
[2022-01-05 18:50] LABS: ERYTHROCYTE SEDIMENTATION RATE 5 mm/hr (0-20)
== END ==
LOC: M WUC 11:38
PROVIDERS: ATTEND Nurse Practitioner Pediatrics
DX: F31.78 Bipolar disorder, in full remission, most recent episode mixed (principal)

== ENCOUNTER 2022-01-06 11:56 | Inpatient (IN) | payer OTHER ==
[~2022-01-06] VITALS: Ht 160 cm; Wt 56.2 kg
[~2022-01-06 11:56] MED LIST changes: -AMOX875T2 PO; -ATIV1TAB10 PO; -COSE1INJ SC; -LAMO200T54 PO; -RIZA10TA2 PO
[2022-01-06 12:59] LABS: HEMATOCRIT 42.6 % (36.0-47.0); HEMOGLOBIN 13.9 g/dl (12.0-15.5); MEAN CORPUSCULAR HGB CONC 32.6 g/dl (32.0-36.5); MEAN CORPUSCULAR VOLUME 88.9 fl (80.0-96.0); PLATELET COUNT, AUTOMATED 261 10^3/uL (150-450); RED BLOOD COUNT 4.79 10^6/uL (4.00-5.40); WHITE BLOOD COUNT 7.2 10^3/uL (4.0-10.0)
[2022-01-06 13:27] LABS: AMPHETAMINES LEVEL URINE NEGATIVE (NEGATIVE); BARBITURATES URINE NEGATIVE (NEGATIVE); BENZODIAZEPINES URINE NEGATIVE (NEGATIVE); CANNABINOIDS URINE POSITIVE (NEGATIVE); COCAINE METABOLITE URINE NEGATIVE (NEGATIVE); METHADONE URINE NEGATIVE (NEGATIVE); OPIATES URINE NEGATIVE (NEGATIVE); PHENCYCLIDINE URINE NEGATIVE (NEGATIVE)
[2022-01-06 13:30] LABS: HCG, SERUM QUALITATIVE NEGATIVE (NEGATIVE)
[2022-01-06 13:32] LABS: RSV AMPLIFICATION NEGATIVE (NEGATIVE)
[2022-01-06 13:37] LABS: ACETAMINOPHEN LEVEL < 2.0 UG/ML (10.0-30.0); ALBUMIN 4.5 GM/DL (3.2-5.2); ALT/SGPT 51 U/L (12-78); BILIRUBIN,DIRECT 0.1 MG/DL (0.0-0.2); BILIRUBIN,TOTAL 0.3 MG/DL (0.2-1.0); BLOOD UREA NITROGEN 15 MG/DL (7-18); CALCIUM LEVEL 9.3 MG/DL (8.5-10.1); CARBON DIOXIDE LEVEL 32 MEQ/L (21-32); CHLORIDE LEVEL 105 MEQ/L (98-107); CREATININE FOR GFR 0.99 MG/DL (0.55-1.30); ETHYL ALCOHOL (ETHANOL) 0.005 % (0.000-0.010); GLOMERULAR FILTRATION RATE > 60.0 (>58); GLUCOSE, FASTING 95 MG/DL (70-100); POTASSIUM SERUM 3.9 MEQ/L (3.5-5.1); SALICYLATE LEVEL < 1.7 MG/DL (5.0-30.0); SODIUM LEVEL 141 MEQ/L (136-145); TOTAL PROTEIN 7.7 GM/DL (6.4-8.2)
[2022-01-06] MEDS ORDERED: LAMO200T54 PO (14:41)
[2022-01-06] MEDS ORDERED: COSE1INJ SC (14:41)
[2022-01-06] MEDS ORDERED: ABIL1TAB11 PO (14:41)
[2022-01-06] MEDS ORDERED: GABA600T4 PO (14:41)
[2022-01-06] MEDS ORDERED: AMOX875T2 PO (14:52)
[2022-01-06] MEDS ORDERED: PROG1CAP9 PO (14:52)
[2022-01-06] MEDS ORDERED: PROBCAP14 PO (14:52)
[2022-01-06] MEDS ORDERED: HOME MED LIST COMPLETE! XX SCH (15:00)
[2022-01-06] MEDS ORDERED: RIZA10TA2 PO (15:34)
[2022-01-06] MEDS ORDERED: ATIV1TAB10 PO (15:34)
[2022-01-06] MEDS ORDERED: LORazepam 0.5 MG TAB PO STA (17:33)
[2022-01-06] MEDS ORDERED: FLUCONAZOLE 50MG TABLET PO ONE (20:10)
[2022-01-06] MEDS: AUGMENTIN 875 MG TAB PO SCH (21:15)
[2022-01-06] MEDS: lamoTRIgine 100MG TAB PO SCH (21:15)
[2022-01-06] MEDS: GABAPENTIN 300 MG CAP PO SCH (21:15)
[2022-01-07] MEDS ORDERED: LORazepam 0.5 MG TAB PO ONE ×2 (05:15→20:50)
[2022-01-07] MEDS ORDERED: ACETAMINOPHEN TAB 650MG DOSE (2X325MG) PO ONE ×2 (08:35→20:50)
[2022-01-07] MEDS: AUGMENTIN 875 MG TAB PO SCH ×2 (09:05→21:44)
[2022-01-07] MEDS: LACTOBACILLUS ACIDOPHILUS CAP (BACID) PO SCH (09:05)
[2022-01-07] MEDS: GABAPENTIN 300 MG CAP PO SCH ×2 (09:05→21:44)
[2022-01-07] MEDS: lamoTRIgine 100MG TAB PO SCH (21:44)
[2022-01-08] MEDS: LACTOBACILLUS ACIDOPHILUS CAP (BACID) PO SCH (09:48)
[2022-01-08] MEDS: AUGMENTIN 875 MG TAB PO SCH ×2 (09:48→21:48)
[2022-01-08] MEDS: GABAPENTIN 300 MG CAP PO SCH ×2 (09:48→21:48)
[2022-01-08] MEDS ORDERED: LORazepam 0.5 MG TAB PO ONE (15:05)
[2022-01-08] MEDS: lamoTRIgine 100MG TAB PO SCH (21:48)
[2022-01-09] MEDS ORDERED: LORazepam 0.5 MG TAB PO STA ×2 (03:40→12:16)
[2022-01-09] MEDS: LACTOBACILLUS ACIDOPHILUS CAP (BACID) PO SCH (08:35)
[2022-01-09] MEDS: AUGMENTIN 875 MG TAB PO SCH (08:35)
[2022-01-09] MEDS: GABAPENTIN 300 MG CAP PO SCH ×2 (08:36→19:48)
[2022-01-09] MEDS ORDERED: THIAMINE 100 MG TAB PO SCH (09:00)
[2022-01-09] MEDS ORDERED: LORazepam 0.5 MG TAB PO PRN (12:00)
[2022-01-09] MEDS ORDERED: RIZATRIPTAN BENZOATE 10 MG TAB PO PRN (12:00)
[2022-01-09] MEDS ORDERED: MOM 30ML SUSPENSION UDC PO PRN (12:00)
[2022-01-09] MEDS ORDERED: MAALOX 30 ML SUSP *UDC PO PRN (12:00)
[2022-01-09] MEDS ORDERED: LORazepam 2 MG TAB PO PRN (12:25)
[2022-01-09 14:19] VITALS: BP 116/58
[2022-01-09] MEDS: FOLIC ACID 1 MG TAB PO SCH (14:31)
[2022-01-09] MEDS: MULTIVITAMINS/MINERALS THERAP 1 TAB PO SCH (14:31)
[2022-01-09] MEDS ORDERED: lamoTRIgine 100MG TAB PO SCH (21:00)
[2022-01-10] MEDS: IBUPROFEN 400MG TAB PO PRN (06:11)
[2022-01-10 06:14] VITALS: BP 107/54
[2022-01-10] MEDS ORDERED: LACTOBACILLUS ACIDOPHILUS CAP (BACID) PO SCH (09:00)
[2022-01-10] MEDS: GABAPENTIN 300 MG CAP PO SCH ×2 (09:45→21:16)
[2022-01-10] MEDS: MULTIVITAMINS/MINERALS THERAP 1 TAB PO SCH (09:45)
[2022-01-10] MEDS: FOLIC ACID 1 MG TAB PO SCH (09:45)
[2022-01-10] MEDS: LORazepam 0.5 MG TAB PO PRN ×2 (12:27→22:23)
[2022-01-10 16:39] VITALS: BP 102/71
[2022-01-10] MEDS: AUGMENTIN 875 MG TAB PO SCH (21:15)
[2022-01-10] MEDS: lamoTRIgine 100MG TAB PO SCH (21:16)
[2022-01-11] MEDS: LACTOBACILLUS ACIDOPHILUS CAP (BACID) PO SCH (09:03)
[2022-01-11] MEDS: AUGMENTIN 875 MG TAB PO SCH ×2 (09:03→21:26)
[2022-01-11] MEDS: LORazepam 0.5 MG TAB PO PRN ×2 (09:03→21:26)
[2022-01-11] MEDS: GABAPENTIN 300 MG CAP PO SCH ×2 (09:03→21:26)
[2022-01-11] MEDS: MULTIVITAMINS/MINERALS THERAP 1 TAB PO SCH (09:03)
[2022-01-11] MEDS: lamoTRIgine 100MG TAB PO SCH ×2 (09:03→21:26)
[2022-01-11] MEDS: FOLIC ACID 1 MG TAB PO SCH (09:03)
[2022-01-11 15:54] VITALS: BP 132/82
[2022-01-11] MEDS: IBUPROFEN 400MG TAB PO PRN (16:21)
[2022-01-11 17:23] VITALS: BP 132/82
[2022-01-11] MEDS ORDERED: ARIPiprazole 10 MG TAB PO SCH (21:00)
[2022-01-12] MEDS: IBUPROFEN 400MG TAB PO PRN (05:11)
[2022-01-12 08:04] LABS: CHOLESTEROL RISK RATIO 2.627 (<5)
[2022-01-12] MEDS: AUGMENTIN 875 MG TAB PO SCH ×2 (09:53→22:13)
[2022-01-12] MEDS: MULTIVITAMINS/MINERALS THERAP 1 TAB PO SCH (09:53)
[2022-01-12] MEDS: GABAPENTIN 300 MG CAP PO SCH ×3 (09:53→22:13)
[2022-01-12] MEDS: LACTOBACILLUS ACIDOPHILUS CAP (BACID) PO SCH (09:53)
[2022-01-12] MEDS: FOLIC ACID 1 MG TAB PO SCH (09:53)
[2022-01-12] MEDS: lamoTRIgine 100MG TAB PO SCH ×2 (09:53→22:14)
[2022-01-12] MEDS ORDERED: BENZTROPINE 0.5 MG TAB PO PRN (11:55)
[2022-01-12] MEDS: ARIPiprazole 15 MG TAB (AbiLIFY) PO SCH (22:13)
[2022-01-12] MEDS: LORazepam 0.5 MG TAB PO PRN (22:16)
[2022-01-13] MEDS: IBUPROFEN 400MG TAB PO PRN (04:50)
[2022-01-13 06:00] VITALS: BP 107/66
[2022-01-13] MEDS: lamoTRIgine 100MG TAB PO SCH ×2 (10:44→21:11)
[2022-01-13] MEDS: GABAPENTIN 300 MG CAP PO SCH ×3 (10:44→21:10)
[2022-01-13] MEDS: FOLIC ACID 1 MG TAB PO SCH (10:45)
[2022-01-13] MEDS: LACTOBACILLUS ACIDOPHILUS CAP (BACID) PO SCH (10:45)
[2022-01-13] MEDS: MULTIVITAMINS/MINERALS THERAP 1 TAB PO SCH (10:45)
[2022-01-13] MEDS: AUGMENTIN 875 MG TAB PO SCH ×2 (10:45→21:11)
[2022-01-13 18:02] VITALS: BP 100/52
[2022-01-13] MEDS: ARIPiprazole 15 MG TAB (AbiLIFY) PO SCH (21:11)
[2022-01-13] MEDS: LORazepam 0.5 MG TAB PO PRN (21:21)
[2022-01-14 06:51] VITALS: BP 121/61
[2022-01-14] MEDS: LACTOBACILLUS ACIDOPHILUS CAP (BACID) PO SCH (10:30)
[2022-01-14] MEDS: FOLIC ACID 1 MG TAB PO SCH (10:30)
[2022-01-14] MEDS: AUGMENTIN 875 MG TAB PO SCH ×2 (10:31→20:45)
[2022-01-14] MEDS: lamoTRIgine 100MG TAB PO SCH ×2 (10:31→20:45)
[2022-01-14] MEDS: GABAPENTIN 300 MG CAP PO SCH ×3 (10:31→20:45)
[2022-01-14] MEDS: MULTIVITAMINS/MINERALS THERAP 1 TAB PO SCH (10:31)
[2022-01-14] MEDS: ARIPiprazole 15 MG TAB (AbiLIFY) PO SCH (20:45)
[2022-01-14] MEDS: LORazepam 0.5 MG TAB PO PRN (20:46)
[2022-01-15 06:06] VITALS: BP 121/59
[2022-01-15] MEDS: IBUPROFEN 400MG TAB PO PRN (07:24)
[2022-01-15] MEDS: LACTOBACILLUS ACIDOPHILUS CAP (BACID) PO SCH (10:59)
[2022-01-15] MEDS: MULTIVITAMINS/MINERALS THERAP 1 TAB PO SCH (10:59)
[2022-01-15] MEDS: AUGMENTIN 875 MG TAB PO SCH (10:59)
[2022-01-15] MEDS: GABAPENTIN 300 MG CAP PO SCH ×3 (10:59→21:48)
[2022-01-15] MEDS: FOLIC ACID 1 MG TAB PO SCH (10:59)
[2022-01-15] MEDS: lamoTRIgine 100MG TAB PO SCH ×2 (10:59→21:48)
[2022-01-15 16:00] VITALS: BP 143/65
[2022-01-15] MEDS: ARIPiprazole 15 MG TAB (AbiLIFY) PO SCH (21:48)
[2022-01-15] MEDS: LORazepam 0.5 MG TAB PO PRN (21:59)
[2022-01-16 06:30] VITALS: BP 108/52
[2022-01-16] MEDS: lamoTRIgine 100MG TAB PO SCH (09:53)
[2022-01-16] MEDS: GABAPENTIN 300 MG CAP PO SCH (09:53)
[2022-01-16] MEDS: MULTIVITAMINS/MINERALS THERAP 1 TAB PO SCH (09:53)
[2022-01-16] MEDS: LACTOBACILLUS ACIDOPHILUS CAP (BACID) PO SCH (09:53)
[2022-01-16] MEDS: FOLIC ACID 1 MG TAB PO SCH (09:53)
[2022-01-16] MEDS ORDERED: ABIL1TAB12 PO (12:26)
[2022-01-16] MEDS ORDERED: LAMO200T54 PO (12:26)
== END 2022-01-16 14:16 | disposition home or self-care (01) | DRG 885 ==
LOC: M ED 11:56 → M ED INP 01-09 11:57 → M PSY 01-09 13:56
PROVIDERS: ADMIT Student in an Organized Health Care Education/Training Program; ATTEND Student in an Organized Health Care Education/Training Program
DX: F31.60 Bipolar disorder, current episode mixed, unspecified (principal); U07.1 COVID-19; R45.851 Suicidal ideations; F41.1 Generalized anxiety disorder; G47.33 Obstructive sleep apnea (adult) (pediatric); Z98.84 Bariatric surgery status; G43.909 Migraine, unspecified, not intractable, without status migrainosus; L40.9 Psoriasis, unspecified; Z62.810 Personal history of physical and sexual abuse in childhood; Z79.2 Long term (current) use of antibiotics; Z79.899 Other long term (current) drug therapy; Z88.8 Allergy status to other drugs, medicaments and biological substances

== ENCOUNTER → 2022-06-19 | Outpatient (REF) | payer OTHER ==
[~2022-06-19] MED LIST changes: +ABIL1TAB12 PO; +AMOX875T2 PO; +ATIV1TAB10 PO; +COSE1INJ SC; +LAMO200T54 PO; -MAXA10TA14 PO; +RIZA10TA2 PO; +RIZA10TA64 PO
== END ==
LOC: M SFHCADAM 12:28
PROVIDERS: ATTEND Physician Assistant
DX: R09.81 Nasal congestion (principal)

== ENCOUNTER → 2022-07-19 | Outpatient (REF) | payer OTHER | LOC: M PLALAB 16:07 | PROVIDERS: ATTEND Nurse Practitioner Family | DX: Z11.3 Encounter for screening for infections with a predominantly sexual mode of transmission (principal) ==

== ENCOUNTER → 2022-07-24 | Outpatient (CLI) | payer OTHER ==
[2022-07-24 17:14] LABS: BASO % 0.2 % (0.0-1.0); EOS % 0.2 % (0.0-3.0); HEMATOCRIT 36.1 % (36.0-47.0); HEMOGLOBIN 11.3 g/dl (12.0-15.5); LYMPH # 1.2 10^3/uL (1.5-5.0); LYMPH % 26.7 % (24.0-44.0); MEAN CORPUSCULAR HEMOGLOBIN 27.9 pg (27.0-33.0); MEAN CORPUSCULAR HGB CONC 31.3 g/dl (32.0-36.5); MEAN CORPUSCULAR VOLUME 89.1 fl (80.0-96.0); MONO # 0.3 10^3/uL (0.0-0.8); MONO % 7.5 % (2.0-8.0); NEUTROPHILS # 2.9 10^3/uL (1.5-8.5); NEUTROPHILS % 65.2 % (36.0-66.0); PLATELET COUNT, AUTOMATED 217 10^3/uL (150-450); RED BLOOD COUNT 4.05 10^6/uL (4.00-5.40); WHITE BLOOD COUNT 4.4 10^3/uL (4.0-10.0)
[2022-07-24 17:15] LABS: HEMATOCRIT 35.9 % (36.0-47.0)
[2022-07-24 17:58] LABS: FREE T4 0.96 NG/DL (0.89-1.76); IRON (FE) 16 UG/DL (50-170); PERCENT SATURATION 4.3 % (13.2-45.0); RHEUMATOID FACTOR QUANT < 3.5 IU/ML (<14); THYROID PEROXIDASE ANTIBODY < 28.0 U/ML (<60.0); THYROID STIMULATING HORMONE 1.504 uIU/ML (0.55-4.78); TOTAL 25(OH) VITAMIN D 22.8 NG/ML (20.0-100.0); TOTAL IRON BINDING CAPACITY 368 UG/DL (250-425); VITAMIN B12 LEVEL 437 PG/ML (211-911)
[2022-07-24 18:01] LABS: ERYTHROCYTE SEDIMENTATION RATE 11 mm/hr (0-20)
== END ==
LOC: M PLALAB 14:24
PROVIDERS: ATTEND Nurse Practitioner Pediatrics
DX: F31.78 Bipolar disorder, in full remission, most recent episode mixed (principal)

== ENCOUNTER → 2022-09-06 | Outpatient (CLI) | payer OTHER | LOC: M WHC 14:00 | PROVIDERS: ATTEND Obstetrics & Gynecology | DX: Z12.31 Encounter for screening mammogram for malignant neoplasm of breast (principal) ==

== ENCOUNTER → 2022-09-06 | Outpatient (CLI) | payer OTHER ==
[2022-09-06 18:01] LABS: BASO % 0.2 % (0.0-1.0); EOS % 0.4 % (0.0-3.0); HEMATOCRIT 36.4 % (36.0-47.0); HEMOGLOBIN 11.4 g/dl (12.0-15.5); LYMPH # 1.5 10^3/uL (1.5-5.0); LYMPH % 27.4 % (24.0-44.0); MEAN CORPUSCULAR HEMOGLOBIN 28.1 pg (27.0-33.0); MEAN CORPUSCULAR HGB CONC 31.3 g/dl (32.0-36.5); MEAN CORPUSCULAR VOLUME 89.7 fl (80.0-96.0); MONO # 0.4 10^3/uL (0.0-0.8); MONO % 6.9 % (2.0-8.0); NEUTROPHILS # 3.7 10^3/uL (1.5-8.5); NEUTROPHILS % 64.9 % (36.0-66.0); PLATELET COUNT, AUTOMATED 217 10^3/uL (150-450); RED BLOOD COUNT 4.06 10^6/uL (4.00-5.40); WHITE BLOOD COUNT 5.6 10^3/uL (4.0-10.0)
[2022-09-06 18:03] LABS: HEMATOCRIT 36.3 % (36.0-47.0)
[2022-09-06 18:04] LABS: ESTRADIOL 49.4 PG/ML; FOLLICLE STIMULATING HORMONE 62.2 mIU/ML
[2022-09-06 18:06] LABS: PROGESTERONE 0.4 NG/ML
== END ==
LOC: M PLALAB 15:26
PROVIDERS: ATTEND Nurse Practitioner Pediatrics
DX: F31.78 Bipolar disorder, in full remission, most recent episode mixed (principal)

== ENCOUNTER → 2022-09-06 | Outpatient (REF) | payer OTHER | LOC: M SFHCWAGY 17:23 | PROVIDERS: ATTEND Obstetrics & Gynecology | DX: N39.0 Urinary tract infection, site not specified (principal); Z12.4 Encounter for screening for malignant neoplasm of cervix ==

== ENCOUNTER → 2023-12-05 | Outpatient (REF) | payer OTHER ==
[~2023-12-05] MED LIST changes: +MECL-209 PO; -MECL1TAB31 PO
== END ==
LOC: M LABDRWAD 17:14
PROVIDERS: ATTEND Nurse Practitioner Family
DX: E83.39 Other disorders of phosphorus metabolism (principal)

== ENCOUNTER → 2023-12-05 | Outpatient (REF) | payer OTHER | LOC: M SFHCADAM 14:32 | PROVIDERS: ATTEND Family Medicine | DX: N39.41 Urge incontinence (principal) ==

== ENCOUNTER → 2023-12-26 | Outpatient (CLI) | payer OTHER | LOC: M ADAMS 14:25 | PROVIDERS: ATTEND Nurse Practitioner Family | DX: L40.0 Psoriasis vulgaris (principal); Z79.899 Other long term (current) drug therapy; Z51.81 Encounter for therapeutic drug level monitoring ==

== ENCOUNTER → 2024-04-01 | Outpatient (CLI) | payer OTHER ==
[2024-04-01 12:51] LABS: BASO % 0.2 % (0.0-1.0); EOS % 0.4 % (0.0-3.0); HEMATOCRIT 39.6 % (36.0-47.0); HEMOGLOBIN 12.9 g/dl (12.0-15.5); LYMPH # 1.8 10^3/uL (1.5-5.0); LYMPH % 37.7 % (24.0-44.0); MEAN CORPUSCULAR HEMOGLOBIN 28.9 pg (27.0-33.0); MEAN CORPUSCULAR HGB CONC 32.6 g/dl (32.0-36.5); MEAN CORPUSCULAR VOLUME 88.8 fl (80.0-96.0); MONO # 0.4 10^3/uL (0.0-0.8); MONO % 7.5 % (2.0-8.0); NEUTROPHILS # 2.6 10^3/uL (1.5-8.5); PLATELET COUNT, AUTOMATED 256 10^3/uL (150-450); RED BLOOD COUNT 4.46 10^6/uL (4.00-5.40); WHITE BLOOD COUNT 4.8 10^3/uL (4.0-10.0)
[2024-04-01 12:56] LABS: C REACTIVE PROTEIN QUANTITATIV < 0.40 MG/DL (<1.0); ERYTHROCYTE SEDIMENTATION RATE 9 mm/hr (0-20)
[2024-04-01 12:57] LABS: IRON (FE) 73 UG/DL (50-170); PERCENT SATURATION 18.8 % (13.2-45.0); RHEUMATOID FACTOR QUANT < 3.5 IU/ML (<14); TOTAL IRON BINDING CAPACITY 388 UG/DL (250-425)
[2024-04-01 12:58] LABS: ALBUMIN 4.1 G/DL (3.2-5.2); ALKALINE PHOSPHATASE 95 U/L (46-116); ALT/SGPT 26 U/L (7.0-40); AST/SGOT 20 U/L (<34); BILIRUBIN,TOTAL 0.6 MG/DL (0.3-1.2); BLOOD UREA NITROGEN 13 MG/DL (9-23); CALCIUM LEVEL 9.3 MG/DL (8.5-10.1); CARBON DIOXIDE LEVEL 29 MMOL/L (20-31); CHLORIDE LEVEL 107 MMOL/L (98-107); CREATININE FOR GFR 0.91 MG/DL (0.55-1.30); GLOMERULAR FILTRATION RATE > 60.0 (>58); GLUCOSE, FASTING 94 MG/DL (60-100); POTASSIUM SERUM 3.8 MMOL/L (3.5-5.1); SODIUM LEVEL 141 MMOL/L (136-145); TOTAL PROTEIN 6.7 G/DL (5.7-8.2)
[2024-04-01 12:59] LABS: FREE T3 3.2 PG/ML (2.3-4.2); FREE T4 1.18 NG/DL (0.89-1.76); THYROID STIMULATING HORMONE 1.224 uIU/ML (0.55-4.78)
[2024-04-01 13:00] LABS: PROGESTERONE 0.26 NG/ML; TOTAL 25(OH) VITAMIN D 25.2 NG/ML (20.0-100.0)
[2024-04-02 15:24] LABS: ANA SCREEN, IFA NEGATIVE (NEGATIVE)
== END ==
LOC: M LABDRWAD 08:11
PROVIDERS: ATTEND Nurse Practitioner Pediatrics
DX: N95.9 Unspecified menopausal and perimenopausal disorder (principal); F31.78 Bipolar disorder, in full remission, most recent episode mixed

== ENCOUNTER 2024-04-10 17:36 | Emergency (ER) | payer OTHER ==
[~2024-04-10] VITALS: Ht 160 cm; Wt 57.0 kg
[2024-04-10 18:39] LABS: HEMATOCRIT 41.2 % (36.0-47.0); HEMOGLOBIN 13.8 g/dl (12.0-15.5); MEAN CORPUSCULAR HGB CONC 33.5 g/dl (32.0-36.5); MEAN CORPUSCULAR VOLUME 86.6 fl (80.0-96.0); PLATELET COUNT, AUTOMATED 257 10^3/uL (150-450); RED BLOOD COUNT 4.76 10^6/uL (4.00-5.40)
[2024-04-10 18:55] LABS: ETHYL ALCOHOL (ETHANOL) 0.005 % (0.000-0.010); HCG, SERUM QUALITATIVE NEGATIVE (NEGATIVE)
[2024-04-10 18:57] LABS: ALBUMIN 4.5 G/DL (3.2-5.2); ALKALINE PHOSPHATASE 104 U/L (46-116); ALT/SGPT 43 U/L (7.0-40); AST/SGOT 41 U/L (<34); BILIRUBIN,DIRECT 0.2 MG/DL (<0.4); BILIRUBIN,TOTAL 0.5 MG/DL (0.3-1.2); BLOOD UREA NITROGEN 8 MG/DL (9-23); CALCIUM LEVEL 9.9 MG/DL (8.5-10.1); CARBON DIOXIDE LEVEL 32 MMOL/L (20-31); CHLORIDE LEVEL 105 MMOL/L (98-107); CREATININE FOR GFR 0.79 MG/DL (0.55-1.30); GLOMERULAR FILTRATION RATE > 60.0 (>58); GLUCOSE, FASTING 98 MG/DL (60-100); SALICYLATE LEVEL < 3.0 MG/DL (<30); SODIUM LEVEL 141 MMOL/L (136-145); TOTAL PROTEIN 7.5 G/DL (5.7-8.2)
[2024-04-10 18:59] LABS: THYROID STIMULATING HORMONE 2.992 uIU/ML (0.55-4.78)
[2024-04-10 19:34] LABS: AMPHETAMINES LEVEL URINE NEGATIVE (NEGATIVE); BENZODIAZEPINES URINE NEGATIVE (NEGATIVE)
[2024-04-10 19:35] LABS: BARBITURATES URINE NEGATIVE (NEGATIVE); COCAINE METABOLITE URINE NEGATIVE (NEGATIVE); METHADONE URINE NEGATIVE (NEGATIVE); OPIATES URINE NEGATIVE (NEGATIVE); PHENCYCLIDINE URINE NEGATIVE (NEGATIVE)
[2024-04-10 19:41] LABS: CANNABINOIDS URINE POSITIVE (NEGATIVE)
[2024-04-11] MEDS ORDERED: ZOLP5TAB (01:00)
[2024-04-11] MEDS ORDERED: CETI-24 PO (02:51)
[2024-04-11] MEDS ORDERED: LAMO100T68 PO (02:51)
[2024-04-11] MEDS ORDERED: ATIV1TAB7 PO (02:51)
[2024-04-11] MEDS ORDERED: RISATAB3 PO (02:51)
[2024-04-11] MEDS ORDERED: ZOLP5TAB PO (02:51)
[2024-04-11] MEDS: ACETAMINOPHEN TAB 650MG DOSE (2X325MG) PO ONE (05:09)
[2024-04-11] MEDS ORDERED: HOME MED LIST COMPLETE! XX SCH (06:45)
[2024-04-11] MEDS: ARTIFICIAL TEARS DROPS 15ML BTL (VISINE DRY RELIEF) OU PRN (09:24)
[2024-04-11] MEDS: LORazepam 1 MG TAB PO ONE (10:20)
[2024-04-11] MEDS ORDERED: COSE1INJ SC (18:26)
[2024-04-11] MEDS: COSENTYX 150 MG/ML SQ SCH (18:39)
[2024-04-11] MEDS ORDERED: lamoTRIgine 25MG TAB PO SCH (21:00)
[2024-04-11] MEDS: LAMICTAL 100 MG PO SCH (21:09)
[2024-04-11] MEDS: CETIRIZINE (ZyrTEC) 10 MG TAB PO SCH (21:10)
[2024-04-11] MEDS: zolPIDEM TARTRATE 5 MG TAB PO PRN (22:25)
[2024-04-12] MEDS: LORazepam 1 MG TAB PO STA (02:51)
[2024-04-12] MEDS: SODIUM CHLORIDE NASAL 0.65% SPRAY BTL (OCEAN) PRN (14:21)
[2024-04-12 15:53] VITALS: BP 111/58; TEMP 97.4; O2SAT 100
== END 2024-04-12 15:59 | disposition home or self-care (01) ==
LOC: M ED 17:36
DX: R45.851 Suicidal ideations (principal); F32.A Depression, unspecified; F84.0 Autistic disorder; R00.1 Bradycardia, unspecified; F31.9 Bipolar disorder, unspecified; G47.33 Obstructive sleep apnea (adult) (pediatric); Z88.8 Allergy status to other drugs, medicaments and biological substances; Z91.018 Allergy to other foods; Z79.899 Other long term (current) drug therapy

== ENCOUNTER 2024-04-15 21:15 | Inpatient (IN) | payer OTHER ==
[~2024-04-15] VITALS: Ht 160 cm; Wt 58.8 kg
[~2024-04-15 21:15] MED LIST changes: +ATIV1TAB7 PO; +CETI-24 PO; +LAMO100T68 PO; +RISATAB3 PO; +ZOLP5TAB; +ZOLP5TAB PO
[2024-04-15 22:46] LABS: HEMATOCRIT 36.7 % (36.0-47.0); HEMOGLOBIN 12.1 g/dl (12.0-15.5); MEAN CORPUSCULAR HEMOGLOBIN 28.8 pg (27.0-33.0); MEAN CORPUSCULAR VOLUME 87.4 fl (80.0-96.0); PLATELET COUNT, AUTOMATED 231 10^3/uL (150-450); WHITE BLOOD COUNT 6.2 10^3/uL (4.0-10.0)
[2024-04-15 23:07] LABS: ETHYL ALCOHOL (ETHANOL) 0.011 % (0.000-0.010)
[2024-04-15 23:09] LABS: SALICYLATE LEVEL < 3.0 MG/DL (<30)
[2024-04-15 23:16] LABS: ALBUMIN 3.7 G/DL (3.2-5.2); ALKALINE PHOSPHATASE 100 U/L (46-116); ALT/SGPT 30 U/L (7.0-40); AST/SGOT 24 U/L (<34); BILIRUBIN,DIRECT 0.1 MG/DL (<0.4); BILIRUBIN,TOTAL 0.3 MG/DL (0.3-1.2); BLOOD UREA NITROGEN 8 MG/DL (9-23); CALCIUM LEVEL 8.8 MG/DL (8.5-10.1); CARBON DIOXIDE LEVEL 31 MMOL/L (20-31); CHLORIDE LEVEL 107 MMOL/L (98-107); CREATININE FOR GFR 0.79 MG/DL (0.55-1.30); GLOMERULAR FILTRATION RATE > 60.0 (>58); GLUCOSE, FASTING 89 MG/DL (60-100); POTASSIUM SERUM 3.8 MMOL/L (3.5-5.1); SODIUM LEVEL 140 MMOL/L (136-145); THYROID STIMULATING HORMONE 5.798 uIU/ML (0.55-4.78); TOTAL PROTEIN 6.5 G/DL (5.7-8.2)
[2024-04-15 23:17] LABS: AMPHETAMINES LEVEL URINE NEGATIVE (NEGATIVE)
[2024-04-15 23:18] LABS: BARBITURATES URINE NEGATIVE (NEGATIVE); BENZODIAZEPINES URINE NEGATIVE (NEGATIVE); COCAINE METABOLITE URINE NEGATIVE (NEGATIVE); METHADONE URINE NEGATIVE (NEGATIVE); OPIATES URINE NEGATIVE (NEGATIVE); PHENCYCLIDINE URINE NEGATIVE (NEGATIVE)
[2024-04-15 23:35] LABS: CANNABINOIDS URINE POSITIVE (NEGATIVE)
[2024-04-15] MEDS ORDERED: FLON1SPR NARES (23:48)
[2024-04-15] MEDS ORDERED: SODI88SP NARES (23:48)
[2024-04-15] MEDS ORDERED: AZEL0.1S NARES (23:48)
[2024-04-15] MEDS ORDERED: HOME MED LIST COMPLETE! XX SCH (23:50)
[2024-04-16] MEDS ORDERED: ENTER DRUG NAME HERE (PATIENT'S OWN MED) PO SCH (09:00)
[2024-04-16] MEDS ORDERED: LAMICTAL 100 MG PO SCH (09:46)
[2024-04-16] MEDS ORDERED: IBUPROFEN 400MG TAB PO PRN (19:55)
[2024-04-16] MEDS ORDERED: LORazepam 2 MG TAB PO PRN (19:55)
[2024-04-16] MEDS ORDERED: MOM 30ML SUSPENSION UDC PO PRN (19:55)
[2024-04-16] MEDS ORDERED: NICOTINE 21MG/24HR 1 EA TRANSDERMAL TD PRN (19:55)
[2024-04-16] MEDS ORDERED: PILL CUTTER 1 EACH XX PRN (20:05)
[2024-04-16] MEDS: lamoTRIgine 100MG TAB PO SCH (21:00)
[2024-04-16] MEDS: THIAMINE 100 MG TAB PO SCH (21:30)
[2024-04-16] MEDS: CETIRIZINE (ZyrTEC) 10 MG TAB PO SCH (21:30)
[2024-04-16] MEDS: ARTIFICIAL TEARS DROPS 15ML BTL (VISINE DRY RELIEF) OP PRN (21:30)
[2024-04-16] MEDS: LAMICTAL 100 MG PO SCH (21:30)
[2024-04-16] MEDS: FLUTICASONE PROP 0.05% NASAL SPRAY 16 GM (FLONASE) NARES SCH (21:54)
[2024-04-16 22:49] VITALS: BP 128/68; TEMP 97.4; O2SAT 98
[2024-04-17] MEDS: zolPIDEM TARTRATE 5 MG TAB PO PRN (00:25)
[2024-04-17] MEDS: diphenhydrAMINE 25MG CAP PO PRN (02:01)
[2024-04-17 06:15] VITALS: BP 103/57; TEMP 98.1; O2SAT 99
[2024-04-17 07:08] VITALS: BP 103/57
[2024-04-17] MEDS: MULTIVITAMINS/MINERALS THERAP 1 TAB PO SCH (08:07)
[2024-04-17] MEDS: FOLIC ACID 1MG TAB PO SCH (08:07)
[2024-04-17] MEDS ORDERED: LACTOBACILLUS ACIDOPHILUS CAP (BACID) PO SCH (09:00)
[2024-04-17] MEDS ORDERED: AZELASTINE 137MCG NASAL SPY 30 ML (ASTELIN) SCH (09:00)
[2024-04-17 14:00] VITALS: BP 109/56
[2024-04-17] MEDS: ARIPiprazole MONOHYDRATE 400 MG INJ (ABILIFY)(FREE PSY INPT ONLY) IM ONE (15:41)
[2024-04-17 15:57] VITALS: BP 109/56; TEMP 96.9; O2SAT 99
[2024-04-17] MEDS: ARTIFICIAL TEARS DROPS 15ML BTL (VISINE DRY RELIEF) OU PRN (18:27)
[2024-04-17] MEDS: MIRTAZAPINE 15 MG TAB PO SCH (21:45)
[2024-04-17] MEDS: ACETAMINOPHEN TAB 650MG DOSE (2X325MG) PO PRN (21:45)
[2024-04-17 22:00] VITALS: BP 120/55
[2024-04-18 06:19] VITALS: BP 110/56; TEMP 96.6; O2SAT 100
[2024-04-18 06:42] VITALS: BP 110/56
[2024-04-18] MEDS: MAALOX 30 ML SUSP *UDC PO PRN (06:49)
[2024-04-18 07:11] LABS: THYROID STIMULATING HORMONE 1.926 uIU/ML (0.55-4.78); THYROXINE (T4) 9.1 UG/DL (4.5-10.9)
[2024-04-18 07:14] LABS: FREE THYROXINE INDEX 2.8 % (1.3-4.8)
[2024-04-18] MEDS: lamoTRIgine 100MG TAB PO SCH (08:27)
[2024-04-18 14:00] VITALS: BP 122/68
[2024-04-18 16:35] VITALS: BP 125/58; TEMP 97.8; O2SAT 100
[2024-04-18] MEDS: MIRTAZAPINE 15 MG TAB PO SCH (22:17)
[2024-04-18] MEDS: ANALGESIC BALM CRM 3OZ TOP PRN (22:48)
[2024-04-19 06:00] VITALS: BP 109/58
[2024-04-19 06:02] VITALS: BP 109/58; TEMP 96.7; O2SAT 100
[2024-04-19 14:00] VITALS: BP 128/70
[2024-04-19 15:37] VITALS: BP 128/70; TEMP 98.7; O2SAT 98
[2024-04-19] MEDS: ANALGESIC BALM CRM 3OZ TOP PRN (17:30)
[2024-04-19 18:19] VITALS: BP 120/57
[2024-04-19] MEDS: SODIUM CHLORIDE NASAL 0.65% SPRAY BTL (OCEAN) NAS SAD PRN (20:57)
[2024-04-20 06:12] VITALS: BP 111/61; TEMP 98.6; O2SAT 100
[2024-04-20] MEDS: risperiDONE 2 MG TAB PO SCH (16:03)
[2024-04-20 16:48] VITALS: BP 120/76; TEMP 97.1; O2SAT 100
[2024-04-21 06:15] VITALS: BP 111/74; TEMP 97.7; O2SAT 99
[2024-04-21] MEDS ORDERED: OLANZapine 5 MG TAB PO SCH (09:00)
[2024-04-21] MEDS ORDERED: ABIL1INJ2 IM (09:34)
[2024-04-21] MEDS ORDERED: LAMO100T80 PO (09:34)
[2024-04-21] MEDS ORDERED: MIRT-10 PO (09:34)
== END 2024-04-21 12:37 | disposition home or self-care (01) | DRG 885 ==
LOC: M ED 21:15 → M ED INP 04-16 19:52 → M PSY 04-16 22:45
PROVIDERS: ADMIT Psychiatry & Neurology Psychiatry; ATTEND Psychiatry & Neurology Child & Adolescent Psychiatry
DX: F31.9 Bipolar disorder, unspecified (principal); F41.9 Anxiety disorder, unspecified; F10.10 Alcohol abuse, uncomplicated; F12.10 Cannabis abuse, uncomplicated; G43.909 Migraine, unspecified, not intractable, without status migrainosus; M79.7 Fibromyalgia; L40.9 Psoriasis, unspecified; G47.33 Obstructive sleep apnea (adult) (pediatric); Z98.84 Bariatric surgery status; Z81.3 Family history of other psychoactive substance abuse and dependence; Z62.810 Personal history of physical and sexual abuse in childhood; Z81.8 Family history of other mental and behavioral disorders; Z79.899 Other long term (current) drug therapy; Z88.8 Allergy status to other drugs, medicaments and biological substances

== ENCOUNTER → 2024-11-11 | Outpatient (CLI) | payer OTHER ==
[~2024-11-11] MED LIST changes: +ABIL1INJ2 IM; +AZEL137S8 NARES; +FLON1SPR NARES; +GABA-1490 PO; -GABA600T4 PO; +MIRT-10 PO; +SODI88SP NARES
[2024-11-11 14:23] LABS: BASO % 0.7 % (0.0-1.0); EOS # 0.1 10^3/uL (0.0-0.5); EOS % 1.6 % (0.0-3.0); HEMATOCRIT 37.9 % (36.0-47.0); LYMPH # 1.3 10^3/uL (1.5-5.0); LYMPH % 30.3 % (24.0-44.0); MEAN CORPUSCULAR HEMOGLOBIN 27.5 pg (27.0-33.0); MEAN CORPUSCULAR HGB CONC 31.7 g/dl (32.0-36.5); MEAN CORPUSCULAR VOLUME 86.9 fl (80.0-96.0); MONO # 0.6 10^3/uL (0.0-0.8); MONO % 14.1 % (2.0-8.0); NEUTROPHILS # 2.3 10^3/uL (1.5-8.5); NEUTROPHILS % 53.1 % (36.0-66.0); PLATELET COUNT, AUTOMATED 245 10^3/uL (150-450); RED BLOOD COUNT 4.36 10^6/uL (4.00-5.40); WHITE BLOOD COUNT 4.3 10^3/uL (4.0-10.0)
[2024-11-11 14:41] LABS: ALKALINE PHOSPHATASE 111 U/L (35-104); ALT/SGPT 25 U/L (7.0-40); AST/SGOT 19 U/L (<34); BILIRUBIN,TOTAL 0.4 MG/DL (0.3-1.2); BLOOD UREA NITROGEN 12 MG/DL (9-23); CALCIUM LEVEL 9.1 MG/DL (8.5-10.1); CARBON DIOXIDE LEVEL 32 MMOL/L (20-31); CHLORIDE LEVEL 104 MMOL/L (98-107); CREATININE FOR GFR 0.84 MG/DL (0.55-1.30); GLOMERULAR FILTRATION RATE > 60.0 (>58); GLUCOSE, FASTING 89 MG/DL (60-100); POTASSIUM SERUM 3.9 MMOL/L (3.5-5.1); SODIUM LEVEL 142 MMOL/L (136-145); TOTAL PROTEIN 7.2 G/DL (5.7-8.2)
[2024-11-11 14:49] LABS: HEPATITIS B SURFACE ANTIBODY NEGATIVE (POSITIVE)
[2024-11-11 15:22] LABS: HEPATITIS C VIRUS ABY INDEX 0.04 INDEX (<0.8)
[2024-11-11 16:14] LABS: HIV 1&2 SCREEN NEGATIVE (NEGATIVE)
[2024-11-13 12:32] LABS: QuantiFERON-TB Gold Plus NEGATIVE (NEGATIVE)
== END ==
LOC: M ADAMS 08:45
PROVIDERS: ATTEND Nurse Practitioner Family
DX: L40.0 Psoriasis vulgaris (principal); Z79.899 Other long term (current) drug therapy; Z51.81 Encounter for therapeutic drug level monitoring

== ENCOUNTER → 2025-04-08 | Outpatient (CLI) | payer OTHER ==
[~2025-04-08] MED LIST changes: -AMBI5TAB PO; +PROZ10CA11 PO; -PROZ10CA7 PO; +ZOLP-532 PO
== END ==
LOC: M SOG 06:46
PROVIDERS: ATTEND Orthopaedic Surgery
DX: M79.662 Pain in left lower leg (principal)

== ENCOUNTER → 2025-07-29 | Outpatient (REF) | payer OTHER ==
[~2025-07-29] MED LIST changes: -SODI88SP NARES; +SODI88SP7 NARES; -ZOLP5TAB; -ZOLP5TAB PO; +ZOLP5TAB9; +ZOLP5TAB9 PO
[2025-08-04 13:12] LABS: HPV APTIMA Not Detected (Not Detected)
== END ==
LOC: M SFHCWAGY 15:03
PROVIDERS: ATTEND Obstetrics & Gynecology
DX: Z12.4 Encounter for screening for malignant neoplasm of cervix (principal); R87.610 Atypical squamous cells of undetermined significance on cytologic smear of cervix (ASC-US)
CPT/HCPCS: 87624; G0123